=== PATIENT | female | born 1970 | race Caucasian/White ===

== ENCOUNTER 2016-10-20 18:31 | Outpatient (CLI) | payer MEDICARE, MEDICAID | END 2016-10-20 18:32 | disposition critical access hospital (66) | DX: G89.29 Other chronic pain (principal) | CPT/HCPCS: A0425; A0429 ==

== ENCOUNTER 2016-10-20 18:43 | Emergency (ER) | payer MEDICARE, MEDICAID | END 2016-10-20 20:12 | disposition home or self-care (01) | DX: G47.00 Insomnia, unspecified (principal); M54.5 Low back pain; F41.9 Anxiety disorder, unspecified ==

== ENCOUNTER 2016-10-21 23:03 | Outpatient (CLI) | payer MEDICARE, MEDICAID | END 2016-10-21 23:04 | disposition critical access hospital (66) | LOC: EMS 23:03 | PROVIDERS: ATTEND Surgery | DX: R53.83 Other fatigue (principal); R47.81 Slurred speech | CPT/HCPCS: A0425; A0429 ==

== ENCOUNTER 2016-10-21 23:16 | Emergency (ER) | payer MEDICARE, MEDICAID ==
--- NOTE | 2016-10-21 23:52 | ED Physician Documentation ---
History of Present Illness - Stated complaint Stated Complaint: LETHARGY - Chief complaint Chief Complaint: MHE - History obtained from History obtained from: Patient, EMS - History of Present Illness Timing: How many days ago (2) - Additonal information Additional information: 46 y/o female S/P gastric bypass with a history of narcotic addiction has developed lethargy and worsening back pain. She is not able to get out of bed today or walk without assistance as she is weak. She is out of her suboxone prescribed by Dr. White and will not be able to get a refill on this until Friday "secondary to insurance" Review of Systems Constitutional: reports: Fatigue. denies: Fever Eyes: denies: Decreased vision Ears: denies: Ear pain Nose: denies: Congestion Throat: denies: Sore throat Cardiac: denies: Chest pain / pressure, Palpitations Respiratory: denies: Dyspnea, Cough GI: denies: Abdominal Pain, Nausea, Vomiting : denies: Dysuria, Frequency Skin: denies: Rash Musculoskeletal: reports: Back pain Neurologic: reports: Generalized weakness. 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 - Present Medications Home Medications: Ambulatory Orders Medication Instructions Recorded Confirmed Gabapentin 300 mg PO TID 02/02/15 10/21/16 Ferrous Sulfate [Iron] 325 mg PO TID 06/08/16 10/21/16 QUEtiapine [SEROquel] 150 mg PO QPM 06/08/16 10/21/16 Pregabalin [Lyrica] 150 mg PO DAILY 10/20/16 10/21/16 Buprenorphine HCl/Naloxone HCl 1 each SL DAILY 10/21/16 10/21/16 [Buprenorphin-Naloxon 8-2 mg Sl] - Allergies Allergies/Adverse Reactions: Allergies Allergy/AdvReac Type Severity Reaction Status Date / Time acetaminophen [From Vicodin] Allergy Rash Verified 10/21/16 23:24 diflunisal [From Dolobid] Allergy Unknown Verified 10/21/16 23:24 hydrocodone bitartrate * Allergy Rash Verified 10/21/16 23:24 [From Vicodin] naproxen [From Naprosyn] Allergy Unknown Verified 10/21/16 23:24 - Social History Does the pt smoke?: No Smoking Status: Never smoker Does the pt drink ETOH?: Yes Does the pt have substance abuse?: Yes Substance Use and Type: Marijuana - Immunizations Immunizations are current?: Yes - POLST Patient has POLST: No PD ED PE NORMAL - Vitals Vital signs reviewed: Yes (hypertensive ) - General General: Alert and oriented X 3, Well developed/nourished - HEENT HEENT: Atraumatic, PERRL, EOMI, Other (dry mucous membranes ) - Neck Neck: Supple, no meningeal sign, No bony TTP - Cardiac Cardiac: RRR, No murmur - Respiratory Respiratory: No respiratory distress, Clear bilaterally - Abdomen Abdomen: Soft, Non tender, Other (glaborous folds of skin ) - Back Back: No CVA TTP, Other (There is paraspinous muscle tenderness to the lower lumbar spine. ) - Derm Derm: Normal color, Warm and dry, No rash - Extremities Extremities: No deformity, No edema - Neuro Neuro: Alert and oriented X 3, No motor deficit, No sensory deficit, Normal speech - Psych Psych: Normal mood, Normal affect Results - Vitals Vitals: Vital Signs - 24 hr 10/21/16 10/21/16 10/22/16 23:17 23:25 00:43 Temperature 36.6 C Heart Rate 88 61 65 Respiratory 16 15 17 Rate Blood Pressure 145/91 H 122/84 H 134/99 H O2 Saturation 100 100 99 10/22/16 10/22/16 10/22/16 01:56 02:35 02:57 Temperature Heart Rate 58 L 61 67 Respiratory 12 18 16 Rate Blood Pressure 127/80 139/96 H 132/77 H O2 Saturation 100 98 96 Oxygen O2 Source Room air - Labs Labs: Laboratory Tests 10/21/16 10/21/16 10/21/16 23:26 23:26 23:26 WBC 5.2 RBC 4.26 Hgb 11.4 L Hct 34.4 L MCV 80.7 L MCH 26.9 L MCHC 33.3 RDW 20.6 H Plt Count 235 MPV 10.3 Neut # 2.4 Lymph # 2.4 [place] # 0.3 Eos # 0.0 Baso # 0.0 Absolute Nucleated RBC 0.00 Nucleated RBCs 0.1 Manual Slide Review Indicated Platelet Estimate NORMAL (130-450,000) Platelet Morphology NORMAL APPEARANCE RBC Morph Micro Appear 1+ OVALOCYTES Sodium 142 Potassium 3.2 L Chloride 106 Carbon Dioxide 28 Anion Gap 8.0 BUN 5 L Creatinine 0.7 Estimated GFR (MDRD) 90 Glucose 86 Lactic Acid Calcium 8.6 Total Bilirubin 0.3 AST 10 ALT 10 Alkaline Phosphatase 78 Troponin I < 0.04 Total Protein 7.0 Albumin 3.5 Globulin 3.5 Albumin/Globulin Ratio 1.0 Lipase 14 L Urine Opiates Screen Ur Oxycodone Screen Urine Methadone Screen Ur Propoxyphene Screen Ur Barbiturates Screen Ur Tricyclics Screen Ur Phencyclidine Scrn Ur Amphetamine Screen U Methamphetamines Scrn U Benzodiazepines Scrn Urine Cocaine Screen U Cannabinoids Screen 10/21/16 10/22/16 23:56 00:15 WBC RBC Hgb Hct MCV MCH MCHC RDW Plt Count MPV Neut # Lymph # [place] # Eos # Baso # Absolute Nucleated RBC Nucleated RBCs Manual Slide Review Platelet Estimate Platelet Morphology RBC Morph Micro Appear Sodium Potassium Chloride Carbon Dioxide Anion Gap BUN Creatinine Estimated GFR (MDRD) Glucose Lactic Acid 1.3 Calcium Total Bilirubin AST ALT Alkaline Phosphatase Troponin I Total Protein Albumin Globulin Albumin/Globulin Ratio Lipase Urine Opiates Screen NEGATIVE Ur Oxycodone Screen NEGATIVE Urine Methadone Screen NEGATIVE Ur Propoxyphene Screen NEGATIVE Ur Barbiturates Screen NEGATIVE Ur Tricyclics Screen POSITIVE H Ur Phencyclidine Scrn NEGATIVE Ur Amphetamine Screen NEGATIVE U Methamphetamines Scrn NEGATIVE U Benzodiazepines Scrn POSITIVE H Urine Cocaine Screen NEGATIVE U Cannabinoids Screen NEGATIVE Procedures - IVC sono (time) 2345 Bedside IVC sono: IVC measures (cm) (0.84), IVC collapsed c insp (cm) (complete) , Significant dehydration PD MEDICAL DECISION MAKING - ED course Complexity details: reviewed old records, reviewed results, re-evaluated patient , considered differential, d/w patient ED course: 46 y/o female with chronic back pain and narcotic addiction is on suboxone for pain control and has run out. She is significantly dehydrated on interrogation of the IVC. She is administered IV saline and decadron without much improvement in the pain. She is subsequently treated with IV dilaudid with some improvement. I have discussed with the patient that we will not be able to prescribe pain medications as she is on pain management. Departure - Departure Disposition: 01 Home, Self Care Clinical Impression: Dehydration Low back pain Qualifiers: Chronicity: chronic Back pain laterality: bilateral Sciatica presence: without sciatica Qualified Code(s): M54.5 - Low back pain Condition: Stable Instructions: ED Dehydration, ED Low Back Pain Injury Follow-Up: Oliver White MD [Other] Comments: Today it appears your weakness is related to significant dehydration. You are on pain management and we will not be able to give you a prescription for ongoing narcotic pain medications. You will need to talk to Dr. White about pain control in the interval. Today in the Emergency Department your blood pressure was elevated. This can happen from the stress of the visit itself, from a current illness or circumstance or from uncontrolled hypertension. If you take blood pressure medications take your usual mediations, have your blood pressure re-checked in an appropriate setting and follow up any elevation with your primary care doctor. Discharge Date/Time: 10/22/16 02:58
[2016-10-22] MEDS ORDERED: DEXAMETHASONE 10 MG/ML VIAL ONE
[2016-10-22] MEDS: SODIUM CHLORIDE 0.9% 1,000 ML IV ONE ×2 (00:01→01:10)
[2016-10-22 00:02] LABS: BASOPHILS % (AUTO) 0.6 %; EOSINOPHILS % (AUTO) 0.5 %; HCT - HEMATOCRIT 34.4 % (37.0-47.0); HGB - HEMOGLOBIN 11.4 g/dL (12.0-16.0); LYMPHOCYTES # (AUTO) 2.4 10^3/uL (1.5-3.5); LYMPHOCYTES % (AUTO) 45.8 %; MEAN CORPUSCULAR HEMOGLOBIN 26.9 pg (27.0-31.0); MEAN CORPUSCULAR HGB CONC 33.3 g/dL (32.0-36.0); MEAN CORPUSCULAR VOLUME 80.7 fL (81.0-99.0); MEAN PLATELET VOLUME 10.3 fL (7.9-10.8); MONOCYTES # (AUTO) 0.3 10^3/uL (0.0-1.0); MONOCYTES % (AUTO) 5.8 %; NEUTROPHILS # (AUTO) 2.4 10^3/uL (1.5-6.6); NEUTROPHILS % (AUTO) 47.3 %; NUCLEATED RED BLOOD CELLS AUTO 0.1 /100WBC; RED BLOOD COUNT 4.26 10^6/uL (4.20-5.40); RED CELL DISTRIBUTION WIDTH 20.6 % (12.0-15.0); UNCORRECTED WHITE BLOOD COUNT 5.2 x10^3/uL; WHITE BLOOD COUNT 5.2 x10^3/uL (4.8-10.8)
[2016-10-22] MEDS: DEXAMETHASONE 10 MG/ML VIAL IVP STA (00:02)
[2016-10-22 00:15] LABS: BILIRUBIN,TOTAL 0.3 mg/dL (0.2-1.0); CALCIUM 8.6 mg/dL (8.5-10.3); CREATININE 0.7 mg/dL (0.4-1.0); POTASSIUM 3.2 mmol/L (3.5-5.0)
[2016-10-22 00:34] LABS: PLATELET ESTIMATE, MANUAL NORMAL (130-450,000) (NORMAL); PLATELET MORPHOLOGY NORMAL APPEARANCE (NORMAL)
[2016-10-22] MEDS ORDERED: POTASSIUM BICARB 25 MEQ TABLET PO ONE (01:11)
[2016-10-22] MEDS: POTASSIUM BICARB 25 MEQ TABLET PO STA (01:13)
[2016-10-22] MEDS ORDERED: HYDROmorphone 1 MG/ML SYRINGE ONE ×2 (01:25→02:32)
[2016-10-22] MEDS ORDERED: ONDANSETRON 4 MG/2 ML VIAL ONE (01:25)
[2016-10-22] MEDS: HYDROmorphone 1 MG/ML SYRINGE IVP STA ×2 (01:29→02:36)
[2016-10-22] MEDS: ONDANSETRON 4 MG/2 ML VIAL IVP STA (01:29)
[2016-10-22 02:58] VITALS: BP 132/77
== END 2016-10-22 02:58 | disposition home or self-care (01) ==
LOC: EDUNIT# → ED 23:16
DX: E86.0 Dehydration (principal); F11.23 Opioid dependence with withdrawal; T40.2X6A Underdosing of other opioids, initial encounter; Z91.138 Patient's unintentional underdosing of medication regimen for other reason; M54.5 Low back pain; G89.4 Chronic pain syndrome; J45.909 Unspecified asthma, uncomplicated; R03.0 Elevated blood-pressure reading, without diagnosis of hypertension; Z98.84 Bariatric surgery status
CPT/HCPCS: 36415; 51701; 80053; 80306; 83605; 83690; 84484; 85025; 96361; 96372; 96374; 96375; 96376; 99283; 99284; 99285

== ENCOUNTER 2016-10-22 12:13 | Outpatient (CLI) | payer MEDICARE, MEDICAID | END 2016-10-22 12:14 | disposition critical access hospital (66) | LOC: EMS 12:13 | PROVIDERS: ATTEND Surgery | DX: M79.604 Pain in right leg (principal) | CPT/HCPCS: A0425; A0429 ==

== ENCOUNTER 2016-10-22 12:28 | Emergency (ER) | payer MEDICARE ==
[2016-10-22 12:34] VITALS: BP 121/85
[2016-10-22] MEDS ORDERED: KETOROLAC 60 MG/2 ML VIAL IM STA (12:36)
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
[2016-10-22] MEDS ORDERED: KETOROLAC 60 MG/2 ML VIAL ONE (12:47)
== END 2016-10-22 12:53 | disposition home or self-care (01) ==
LOC: EDUNIT# → ED 12:28
DX: F11.23 Opioid dependence with withdrawal (principal); T40.2X6A Underdosing of other opioids, initial encounter; Z91.138 Patient's unintentional underdosing of medication regimen for other reason; M54.5 Low back pain; G89.4 Chronic pain syndrome; J45.909 Unspecified asthma, uncomplicated; R03.0 Elevated blood-pressure reading, without diagnosis of hypertension

== ENCOUNTER 2016-10-30 17:37 | Outpatient (CLI) | payer MEDICARE, MEDICAID | END 2016-10-30 17:38 | disposition critical access hospital (66) | LOC: EMS 17:37 | PROVIDERS: ATTEND Surgery | DX: R11.2 Nausea with vomiting, unspecified (principal) | CPT/HCPCS: A0425; A0427 ==

== ENCOUNTER 2016-10-30 17:53 | Emergency (ER) | payer MEDICARE, MEDICAID ==
[2016-10-30] MEDS ORDERED: SODIUM CHLORIDE 0.9% 1,000 ML IV ONE (18:18)
--- NOTE | 2016-10-30 18:21 | ED Physician Documentation ---
History of Present Illness - Stated complaint Stated Complaint: N/V - Chief complaint Chief Complaint: General - History obtained from History obtained from: Patient - History of Present Illness Timing: Other (This is a 46-year-old woman who is 5 years out from a gastric bypass, without complication. Also has chronic pain. Was seen here a few times recently for Suboxone withdrawal, now is back on her Suboxone seems stable from a pain perspective but has had persistent vomiting without significant abdominal pain for the last 6 days. She's had no diarrhea in fact doesn't seem to be having any bowel output. There is no associated fever. 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 - Present Medications Home Medications: Ambulatory Orders Medication Instructions Recorded Confirmed Gabapentin 300 mg PO TID 02/02/15 10/30/16 Ferrous Sulfate [Iron] 325 mg PO TID 06/08/16 10/30/16 QUEtiapine [SEROquel] 150 mg PO QPM 06/08/16 10/30/16 Pregabalin [Lyrica] 150 mg PO DAILY 10/20/16 10/30/16 Buprenorphine HCl/Naloxone HCl 1 each SL DAILY 10/21/16 10/21/16 [Buprenorphin-Naloxon 8-2 mg Sl] Ondansetron HCl [Zofran] 4 mg PO Q6H PRN #10 tablet 10/30/16 - Allergies Allergies/Adverse Reactions: Allergies Allergy/AdvReac Type Severity Reaction Status Date / Time acetaminophen [From Vicodin] Allergy Rash Verified 10/30/16 18:24 diflunisal [From Dolobid] Allergy Unknown Verified 10/30/16 18:24 hydrocodone bitartrate * Allergy Rash Verified 10/30/16 18:24 [From Vicodin] naproxen [From Naprosyn] Allergy Unknown Verified 10/30/16 18:24 - Social History Does the pt smoke?: No Smoking Status: Never smoker Does the pt drink ETOH?: Yes Does the pt have substance abuse?: Yes - Family History Family history: reports: Non contributory - Immunizations Immunizations are current?: Yes - POLST Patient has POLST: No PD ED PE NORMAL - Vitals Vital signs reviewed: Yes - General General: Alert and oriented X 3, No acute distress - HEENT HEENT: PERRL, EOMI, Pharynx benign - Neck Neck: Supple, no meningeal sign, No bony TTP - Cardiac Cardiac: RRR, No murmur - Respiratory Respiratory: No respiratory distress, Clear bilaterally - Abdomen Abdomen: Other (I do not appreciate bowel tones, there is no tenderness) - Derm Derm: Normal color, Warm and dry - Extremities Extremities: No deformity, No tenderness to palpate, No edema, No calf tenderness / cord - Neuro Neuro: Alert and oriented X 3, Normal speech - Psych Psych: Normal mood, Normal affect Results - Vitals Vitals: Vital Signs - 24 hr 10/30/16 10/30/16 10/30/16 17:58 19:10 20:26 Temperature 36.7 C 36.7 C 36.1 C L Heart Rate 69 65 65 Respiratory 16 15 15 Rate Blood Pressure 162/103 H 138/96 H 146/94 H O2 Saturation 100 100 100 10/30/16 10/30/16 21:15 22:06 Temperature Heart Rate 79 65 Respiratory 16 15 Rate Blood Pressure 146/95 H 144/98 H O2 Saturation 98 98 Oxygen O2 Source Room air - Labs Labs: Laboratory Tests 10/30/16 10/30/16 10/30/16 18:10 18:10 19:00 WBC 5.8 RBC 4.49 Hgb 11.9 L Hct 36.4 L MCV 81.2 MCH 26.6 L MCHC 32.8 RDW 19.6 H Plt Count 257 MPV 9.9 Neut # 3.6 Lymph # 1.7 [place] # 0.4 Eos # 0.0 Baso # 0.0 Absolute Nucleated RBC 0.00 Nucleated RBCs 0.0 Sodium 133 L Potassium 3.7 Chloride 100 L Carbon Dioxide 24 Anion Gap 9.0 BUN 11 Creatinine 0.5 Estimated GFR (MDRD) 133 Glucose 96 Calcium 8.9 Magnesium 1.8 Total Bilirubin 0.8 AST 21 ALT 14 Alkaline Phosphatase 80 Total Protein 7.3 Albumin 3.6 Globulin 3.7 Albumin/Globulin Ratio 1.0 Lipase 14 L Urine Color YELLOW Urine Clarity CLEAR Urine pH 6.0 Ur Specific [place] <=1.005 Urine Protein NEGATIVE Urine Glucose (UA) NEGATIVE Urine Ketones 15 H Urine Occult Blood TRACE-LYSE Urine Nitrite NEGATIVE Urine Bilirubin NEGATIVE Urine Urobilinogen 0.2 (NORMAL) Ur Leukocyte Esterase NEGATIVE Ur Microscopic Review NOT INDICATED Urine Culture Comments NOT INDICATED - Rads (name of study) CT A/P Radiology: EMP read contemporaneously (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 Case discussed with Dr. Huerta, on-call surgeon at [facility] where she had her gastric bypass who felt this could be easily and safely worked up as an outpatient and there is no need for emergent transfer or admission. Departure - Departure Disposition: 01 Home, Self Care Clinical Impression: Vomiting (bilious) following gastrointestinal surgery Condition: Good Record reviewed to determine appropriate education?: Yes Instructions: ED Nausea Vomiting Prescriptions: Ondansetron HCl [Zofran] 4 mg PO Q6H PRN #10 tablet PRN Reason: Nausea / Vomiting Comments: Your case was discussed tonight with Dr. Huerta at [facility]. You need to followup with the bariatric clinic down there, the number is [phone]. Take the copy of the CAT scan on the CD with you. Your blood pressure was elevated today on check in to the emergency department. This does not mean that you have hypertension, it is a common phenomenon to check into the emergency department and have elevated blood pressure. I recommend that you see your primary care physician within the week to have it rechecked when you're feeling better.
[2016-10-30 18:38] LABS: BASOPHILS % (AUTO) 0.5 %; EOSINOPHILS % (AUTO) 0.1 %; HCT - HEMATOCRIT 36.4 % (37.0-47.0); HGB - HEMOGLOBIN 11.9 g/dL (12.0-16.0); LYMPHOCYTES # (AUTO) 1.7 10^3/uL (1.5-3.5); LYMPHOCYTES % (AUTO) 28.9 %; MEAN CORPUSCULAR HEMOGLOBIN 26.6 pg (27.0-31.0); MEAN CORPUSCULAR HGB CONC 32.8 g/dL (32.0-36.0); MEAN CORPUSCULAR VOLUME 81.2 fL (81.0-99.0); MEAN PLATELET VOLUME 9.9 fL (7.9-10.8); MONOCYTES # (AUTO) 0.4 10^3/uL (0.0-1.0); MONOCYTES % (AUTO) 7.3 %; NEUTROPHILS # (AUTO) 3.6 10^3/uL (1.5-6.6); NEUTROPHILS % (AUTO) 63.2 %; RED BLOOD COUNT 4.49 10^6/uL (4.20-5.40); RED CELL DISTRIBUTION WIDTH 19.6 % (12.0-15.0); UNCORRECTED WHITE BLOOD COUNT 5.8 x10^3/uL; WHITE BLOOD COUNT 5.8 x10^3/uL (4.8-10.8)
[2016-10-30 18:49] LABS: BILIRUBIN,TOTAL 0.8 mg/dL (0.2-1.0); CALCIUM 8.9 mg/dL (8.5-10.3); CREATININE 0.5 mg/dL (0.4-1.0); MAGNESIUM 1.8 mg/dL (1.7-2.8); POTASSIUM 3.7 mmol/L (3.5-5.0); TOTAL PROTEIN 7.3 g/dL (6.7-8.2)
[2016-10-30 19:14] LABS: BILIRUBIN,URINE NEGATIVE (NEGATIVE)
[2016-10-30 19:15] LABS: UA CHARGE (STRIP ONLY) YES; UR CULTURE IF IND NOT INDICATED
[2016-10-30] MEDS ORDERED: IOPAMIDOL-300 50 ML VIAL PO ONE (19:58)
[2016-10-30] MEDS ORDERED: IOPAMIDOL-300 100 ML VIAL IVP ONE (19:58)
--- NOTE | 2016-10-30 20:34 | CT Report ---
EXAM: CT ABDOMEN AND PELVIS EXAM DATE: 10/30/2016 07:58 PM. CLINICAL HISTORY: Vomiting. Remote gastric bypass. COMPARISONS: 05/19/2016. TECHNIQUE: Routine helical CT imaging was performed through the abdomen and pelvis. IV contrast: 100 mL Isovue 300. Enteric contrast: Yes. Reconstructions: Coronal and sagittal. In accordance with CT protocol optimization, one or more of the following dose reduction techniques w ere utilized for this exam: automated exposure control, adjustment of mA and/or KV based on patient s ize, or use of iterative reconstructive technique. FINDINGS: Lung Bases: Unremarkable. Liver: Normal. No focal hepatic lesion. Gallbladder/Bile Ducts: The common bile duct is mildly dilated, measuring 11 mm in diameter (upper mi d limits of normal 6 mm. No visualized stones. Spleen: Normal. Pancreas: Normal. Adrenal Glands: Normal. Kidneys and Ureters: Normal. No stones, hydronephrosis, or hydroureter. Peritoneal Cavity/Bowel: Postoperative changes of remote Jennifer-en-Y gastric bypass surgery. 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 No evidence for bowel obstruction or acut e inflammatory process. The appendix is normal. Trace intrapelvic free fluid, within physiologic limi ts. No pneumoperitoneum or adenopathy. Pelvic Organs: Small benign-appearing bilateral ovarian cysts measuring 2.7 cm on the right (image 72 ) and 2.2 cm on the left (image 73). The bladder, uterus, and ovaries are otherwise unremarkable. Vasculature: Unremarkable. Bones: Transitional partially lumbar S1 vertebral body, a normal variant. Mild right convex curvature centered at L3-L4 and left convex curvature centered at L5-S1. Moderate to severe multilevel degener ative disk disease within the lumbar spine. No acute bony abnormality. Other: Unchanged small fat-containing umbilical and supraumbilical hernias. IMPRESSION: 1. 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 2. New mild dilation of the common bile duct. Consider correlation with laboratory values to assess f or evidence of obstruction. 3. Small benign-appearing bilateral ovarian cysts. No follow-up imaging is needed per ACR white paper . [facility] Referring Provider Line: [phone] SITE ID: [id number]
[2016-10-30 22:07] VITALS: BP 144/98
== END 2016-10-30 22:36 | disposition home or self-care (01) ==
LOC: EDUNIT# → ED 17:53
DX: K91.0 Vomiting following gastrointestinal surgery (principal); K95.89 Other complications of other bariatric procedure; G89.29 Other chronic pain; J45.909 Unspecified asthma, uncomplicated; R03.0 Elevated blood-pressure reading, without diagnosis of hypertension
CPT/HCPCS: 36415; 74177; 80053; 81003; 83690; 83735; 85025; 99284; Q9967; 81001; 87086

== ENCOUNTER 2017-03-04 15:03 | Outpatient (CLI) | payer MEDICARE, MEDICAID | END 2017-03-04 15:04 | disposition critical access hospital (66) | LOC: EMS 15:03 | PROVIDERS: ATTEND Surgery | DX: R51 Headache (principal) | CPT/HCPCS: A0425; A0429 ==

== ENCOUNTER 2017-03-04 15:17 | Emergency (ER) | payer MEDICARE, MEDICAID | END 2017-03-04 16:30 | disposition left against medical advice (07) | LOC: EDUNIT# → ED 15:17 | DX: Z53.21 Procedure and treatment not carried out due to patient leaving prior to being seen by health care provider (principal) ==

== ENCOUNTER 2017-03-29 20:34 | Emergency (ER) | payer MEDICARE, MEDICAID ==
[2017-03-29] MEDS ORDERED: LORazepam 2 MG/ML SYRINGE IVP STA (21:26)
[2017-03-29] MEDS ORDERED: SODIUM CHLORIDE 0.9% 1,000 ML IV ONE (21:27)
[2017-03-29 21:29] LABS: BASOPHILS % (AUTO) 0.3 %; EOSINOPHILS % (AUTO) 0.2 %; HCT - HEMATOCRIT 42.1 % (37.0-47.0); HGB - HEMOGLOBIN 14.1 g/dL (12.0-16.0); LYMPHOCYTES # (AUTO) 3.4 10^3/uL (1.5-3.5); LYMPHOCYTES % (AUTO) 48.9 %; MEAN CORPUSCULAR HEMOGLOBIN 31.5 pg (27.0-31.0); MEAN CORPUSCULAR HGB CONC 33.4 g/dL (32.0-36.0); MEAN CORPUSCULAR VOLUME 94.2 fL (81.0-99.0); MEAN PLATELET VOLUME 10.3 fL (7.9-10.8); MONOCYTES # (AUTO) 0.5 10^3/uL (0.0-1.0); MONOCYTES % (AUTO) 6.8 %; NEUTROPHILS # (AUTO) 3.1 10^3/uL (1.5-6.6); NEUTROPHILS % (AUTO) 43.8 %; RED BLOOD COUNT 4.47 10^6/uL (4.20-5.40); RED CELL DISTRIBUTION WIDTH 15.7 % (12.0-15.0)
[2017-03-29] MEDS ORDERED: LORazepam 2 MG/ML SYRINGE ONE (21:37)
[2017-03-29 21:42] LABS: BILIRUBIN,TOTAL 0.4 mg/dL (0.2-1.0); BUN - BLOOD UREA NITROGEN 15 mg/dL (6-20); CALCIUM 8.7 mg/dL (8.5-10.3); CARBON DIOXIDE - CO2 19 mmol/L (21-32); CHLORIDE 106 mmol/L (101-111); CREATININE 0.8 mg/dL (0.4-1.0); GFR - MDRD 78 (>89); GLUCOSE 83 mg/dL (70-100); LIPASE 14 U/L (22-51); MAGNESIUM 2.2 mg/dL (1.7-2.8); PHOSPHORUS 3.8 mg/dL (2.5-4.6); SODIUM 140 mmol/L (135-145); TOTAL PROTEIN 7.8 g/dL (6.7-8.2)
--- NOTE | 2017-03-29 22:01 | CT Preliminary Report ---
Exam: CT HEAD W/O IMPRESSION: No acute findings. [facility] SITE ID: [id number]
--- NOTE | 2017-03-29 22:04 | CT Report ---
EXAM: CT HEAD EXAM DATE: 03/29/2017 09:53 PM. CLINICAL HISTORY: New onset seizures. COMPARISON: 11/04/2014. TECHNIQUE: Multiaxial CT images were obtained from the foramen magnum to the vertex. IV contrast: Non e. Reformats: Coronal. In accordance with CT protocol optimization, one or more of the following dose reduction techniques w ere utilized for this exam: automated exposure control, adjustment of mA and/or KV based on patient s ize, or use of iterative reconstructive technique. FINDINGS: Parenchyma: No intraparenchymal hemorrhage. No evidence of mass, midline shift, or CT findings of inf arction. Chou-white differentiation is distinct. Extraaxial Spaces: Normal for age. No subdural or epidural collections identified. Ventricles: Normal in size and position. Sinuses and orbits: Imaged paranasal sinuses, orbits, and mastoids show no significant abnormality. Bones: No fractures. Hyperostosis frontalis interna is seen. Other: None. IMPRESSION: No acute findings. [facility] Referring Provider Line: [phone] SITE ID: [id number]
[2017-03-29 23:01] LABS: BILIRUBIN,URINE NEGATIVE (NEGATIVE)
[2017-03-29] MEDS ORDERED: ACETAMINOPHEN 325 MG TABLET PO STA (23:12)
[2017-03-29 23:13] LABS: HCG UR QUAL NEGATIVE; UA CHARGE (STRIP ONLY) YES; UR CULTURE IF IND NOT INDICATED
[2017-03-29] MEDS ORDERED: ACETAMINOPHEN 325 MG TABLET PO ONE (23:20)
[2017-03-30] MEDS ORDERED: levETIRAcetam INJ 1,000 MG in SODIUM CHLORIDE 0.9% 100ML 100 ML IV STA (00:13)
[2017-03-30 00:55] VITALS: BP 128/86
--- NOTE | 2017-03-30 00:59 | ED Physician Documentation ---
PD HPI SEIZURE - Stated complaint Stated Complaint: DIZZY - Chief complaint Chief Complaint: Neuro - History obtained from History obtained from: Patient, Friend - History of Present Illness Timing - onset: How many weeks ago (4) Witnessed: Witnessed Number of seizures: Multiple, Lasted - seconds, Lasted minutes (1) Description of seizure activity: Generalized, Tonic clonic History of seizures: First seizure Similar symptoms before: Has not had sx before Recently seen: Not recently seen - Additional information Additional information: Patient is a 46 year old female with a history of chronic pain, anxiety, depression and status post gastric bypass who is presenting to the emergency department for recurrent falls, stutter and possible seizures. patient states that she falls almost every day because her legs give out on her. He friend also states that when she has been staying with Review of Systems Constitutional: denies: Fever, Chills Eyes: denies: Decreased vision, Photophobia Ears: reports: Reviewed and negative Nose: denies: Congestion, Epistaxis Throat: denies: Sore throat Cardiac: denies: Chest pain / pressure, Palpitations, Calf pain Respiratory: denies: Cough, Wheezing GI: denies: Nausea, Vomiting : denies: Dysuria, Frequency, Hesitancy, Incontinent Skin: denies: Rash, Lesions Musculoskeletal: denies: Neck pain, Back pain Neurologic: reports: Generalized weakness, Seizure, Other (twitching) Psychiatric: reports: Other (new stuttering) PD PAST MEDICAL HISTORY - Past Medical History Respiratory: Asthma Neuro: Headache/migraine GI: Other Psych: Depression, Anxiety Musculoskeletal: Chronic back pain Derm: Herpes zoster - Past Surgical History Past Surgical History: Yes General: Gastric surgery Ortho: Shoulder arthroplasty, 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 - Present Medications Home Medications: Ambulatory Orders Medication Instructions Recorded Confirmed QUEtiapine [SEROquel] 150 mg PO QPM 06/08/16 03/29/17 Pregabalin [Lyrica] 150 mg PO DAILY 10/20/16 03/29/17 Buprenorphine HCl/Naloxone HCl 1 each SL DAILY 10/21/16 03/29/17 [Buprenorphin-Naloxon 8-2 mg Sl] DULoxetine [Cymbalta] 60 mg PO BID 03/29/17 03/29/17 Clonazepam 2 mg PO BID #5 tablet 03/30/17 Levetiracetam [Keppra] 750 mg PO BID #60 tablet 03/30/17 - Allergies Allergies/Adverse Reactions: Allergies Allergy/AdvReac Type Severity Reaction Status Date / Time hydrocodone bitartrate * Allergy Mild Rash Verified 03/29/17 23:42 [From Vicodin] diflunisal [From Dolobid] Allergy Unknown Verified 10/30/16 18:24 naproxen [From Naprosyn] Allergy Unknown Verified 10/30/16 18:24 - Social History Does the pt smoke?: No Smoking Status: Never smoker Does the pt drink ETOH?: No Does the pt have substance abuse?: No - Immunizations Immunizations are current?: Yes - POLST Patient has POLST: No PD ED PE NORMAL - Vitals Vital signs reviewed: Yes - General General: Alert and oriented X 3, No acute distress - HEENT HEENT: Atraumatic - Neck Neck: Supple, no meningeal sign, No JVD - Cardiac Cardiac: RRR, No murmur - Respiratory Respiratory: No respiratory distress - Abdomen Abdomen: Soft, Non tender, Non distended - Derm Derm: Normal color, Warm and dry, No rash - Extremities Extremities: No deformity - Neuro Neuro: Alert and oriented X 3, No sensory deficit, Normal speech - Psych Psych: Normal mood PD ED PE EXPANDED - HEENT HEENT: Head injury (small abrasion to right posterior scalp), Dry mucous membranes - Neuro Neuro: Alert and Oriented X 3, Other (30 sec generalized tonic clonic seizure). No: Confused, Disoriented - Psych Psych: Other (intermittent stuttering or twitches) Results - Vitals Vitals: Vital Signs - 24 hr 03/29/17 03/29/17 03/30/17 20:42 21:28 00:54 Temperature 98.5 C H Heart Rate 85 102 H 79 Respiratory 18 20 18 Rate Blood Pressure 136/90 H 121/88 H 128/86 H O2 Saturation 99 95 96 Oxygen O2 Source Room air - EKG (time done) 2102 Rate: Rate (enter#) (82) Rhythm: NSR Holmes: Normal QRS: Normal Ischemia: Non specific changes Compare to prior EKG: Unchanged from prior EKG - Labs Labs: Laboratory Tests 03/29/17 03/29/17 03/29/17 21:19 21:19 22:40 WBC 7.0 RBC 4.47 Hgb 14.1 Hct 42.1 MCV 94.2 MCH 31.5 H MCHC 33.4 RDW 15.7 H Plt Count 240 MPV 10.3 Neut # 3.1 Lymph # 3.4 [place] # 0.5 Eos # 0.0 Baso # 0.0 Absolute Nucleated RBC 0.00 Nucleated RBC % 0.0 Sodium 140 Potassium 3.0 L Chloride 106 Carbon Dioxide 19 L Anion Gap 15.0 H BUN 15 Creatinine 0.8 Estimated GFR (MDRD) 78 L Glucose 83 Calcium 8.7 Phosphorus 3.8 Magnesium 2.2 Total Bilirubin 0.4 AST 21 ALT < 10 L Alkaline Phosphatase 71 Total Protein 7.8 Albumin 3.9 Globulin 3.9 Albumin/Globulin Ratio 1.0 Lipase 14 L Urine Color Urine Clarity Urine pH Ur Specific [place] Urine Protein Urine Glucose (UA) Urine Ketones Urine Occult Blood Urine Nitrite Urine Bilirubin Urine Urobilinogen Ur Leukocyte Esterase Ur Microscopic Review Urine Culture Comments Urine HCG, Qual Urine Opiates Screen NEGATIVE Ur Oxycodone Screen NEGATIVE Urine Methadone Screen NEGATIVE Ur Propoxyphene Screen NEGATIVE Ur Barbiturates Screen NEGATIVE Ur Tricyclics Screen POSITIVE H Ur Phencyclidine Scrn NEGATIVE Ur Amphetamine Screen NEGATIVE U Methamphetamines Scrn NEGATIVE U Benzodiazepines Scrn NEGATIVE Urine Cocaine Screen NEGATIVE U Cannabinoids Screen NEGATIVE 03/29/17 22:40 WBC RBC Hgb Hct MCV MCH MCHC RDW Plt Count MPV Neut # Lymph # [place] # Eos # Baso # Absolute Nucleated RBC Nucleated RBC % Sodium Potassium Chloride Carbon Dioxide Anion Gap BUN Creatinine Estimated GFR (MDRD) Glucose Calcium Phosphorus Magnesium Total Bilirubin AST ALT Alkaline Phosphatase Total Protein Albumin Globulin Albumin/Globulin Ratio Lipase Urine Color YELLOW Urine Clarity CLEAR Urine pH 6.0 Ur Specific [place] >=1.030 H Urine Protein NEGATIVE Urine Glucose (UA) NEGATIVE Urine Ketones NEGATIVE Urine Occult Blood NEGATIVE Urine Nitrite NEGATIVE Urine Bilirubin NEGATIVE Urine Urobilinogen 0.2 (NORMAL) Ur Leukocyte Esterase NEGATIVE Ur Microscopic Review NOT INDICATED Urine Culture Comments NOT INDICATED Urine HCG, Qual NEGATIVE Urine Opiates Screen Ur Oxycodone Screen Urine Methadone Screen Ur Propoxyphene Screen Ur Barbiturates Screen Ur Tricyclics Screen Ur Phencyclidine Scrn Ur Amphetamine Screen U Methamphetamines Scrn U Benzodiazepines Scrn Urine Cocaine Screen U Cannabinoids Screen - Rads (name of study) ct head Radiology: Final report received (no acute findings) PD MEDICAL DECISION MAKING - ED course Complexity details: reviewed old records, reviewed results, re-evaluated patient , considered differential, d/w patient, d/w benefits sales consultant ED course: Patient was seen and examined at bedside. While evaluating the patient she had a witnessed 30 second seizure with minimal post ictal period. IV access was gained and labs were drawn. Patient was treated with ativan 1mg. seizure precautions were put into place. CT head was within normal limits, as was the blood work. Case was discussed with [facility] neurology who recommended keppra load and keppra 750mg bid and further outpatient work up. Patient was treated and was discharged home with a friend who would stay with her. Patient was stable for discharge with outpatient follow up. Departure - Departure Disposition: Home, Self Care Clinical Impression: New onset seizure Condition: Good Instructions: Epilepsy Dx Follow-Up: [facility], neurology clinic [Other] Prescriptions: Clonazepam 2 mg PO BID #5 tablet Levetiracetam [Keppra] 750 mg PO BID #60 tablet Comments: Your symptoms are in a least part due to a new seizure disorder. It is important that you start your medications (keppra) tomorrow. you will take it every day twice a day. More testing is still necessary. [facility] neurological clinic is expecting your call. You should call them at [phone] to schedule a follow up appointment. If you don't want to go to [place] you can work with your doctor at the appointment on friday to find another neurologist. You cannot drive a car, operate heavy machinery, go swim alone or other behaviors that could be risky if you had a seizure. You may return to the emergency department at any time for new, worsening or uncontrollable symptoms. Discharge Date/Time: 03/30/17 01:44
== END 2017-03-30 01:44 | disposition home or self-care (01) ==
LOC: ED 20:34
DX: R56.9 Unspecified convulsions (principal); J45.909 Unspecified asthma, uncomplicated; Z98.84 Bariatric surgery status
CPT/HCPCS: 36415; 70450; 80053; 80306; 81003; 81025; 83690; 83735; 84100; 85025; 93005; 96361; 96365; 96375; 99284; 99285; A9270; J2060; 81001; 87086

== ENCOUNTER 2017-04-01 16:29 | Emergency (ER) | payer MEDICARE, MEDICAID ==
[2017-04-01] MEDS ORDERED: MULTIVITAMIN 10 ML in SODIUM CHLORIDE 0.9% 1,000 ML IV STA (17:01)
[2017-04-01] MEDS ORDERED: THIAMINE INJ 100 MG, FOLIC ACID INJ 1 MG in SODIUM CHLORIDE 0.9% 100ML 100 ML IV STA (17:01)
[2017-04-01] MEDS ORDERED: MAGNESIUM SULFATE 2 GRAM 2 GM/50 ML BAG IV STA (17:01)
[2017-04-01] MEDS ORDERED: MAGNESIUM SULFATE 2 GRAM 2 GM/50 ML BAG IV ONE (17:51)
--- NOTE | 2017-04-01 18:03 | ED Physician Documentation ---
History of Present Illness - Stated complaint Stated Complaint: DIZZY - Chief complaint Chief Complaint: General - History obtained from History obtained from: Patient - History of Present Illness Timing: How many days ago (3) - Additonal information Additional information: 46-year-old female has had dizziness on standing for the past 3 days. She states that every time she goes to stand up she feels dizzy and feels off balance. She feels that she has been drinking adequate fluid she has not been eating much. She indicates that she is taking all of her medications as prescribed and has been out of her Klonopin for 3 days. Review of Systems Constitutional: reports: Myalgias, Fatigue. denies: Fever, Chills Eyes: denies: Decreased vision Ears: denies: Ear pain Nose: denies: Congestion Throat: denies: Sore throat Cardiac: denies: Chest pain / pressure, Palpitations Respiratory: denies: Dyspnea, Cough GI: denies: Abdominal Pain, Nausea, Diarrhea : denies: Dysuria, Frequency Skin: denies: Rash Musculoskeletal: reports: Neck pain, Back pain, Extremity pain Neurologic: reports: Generalized weakness. 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 - Present Medications Home Medications: Ambulatory Orders Medication Instructions Recorded Confirmed QUEtiapine [SEROquel] 150 mg PO QPM 06/08/16 04/01/17 Pregabalin [Lyrica] 150 mg PO DAILY 10/20/16 03/29/17 Buprenorphine HCl/Naloxone HCl 1 each SL DAILY 10/21/16 04/01/17 [Buprenorphin-Naloxon 8-2 mg Sl] DULoxetine [Cymbalta] 60 mg PO BID 03/29/17 04/01/17 Clonazepam 2 mg PO BID #5 tablet 03/30/17 04/01/17 Levetiracetam [Keppra] 750 mg PO BID #60 tablet 03/30/17 04/01/17 - Allergies Allergies/Adverse Reactions: Allergies Allergy/AdvReac Type Severity Reaction Status Date / Time hydrocodone bitartrate * Allergy Mild Rash Verified 03/29/17 23:42 [From Vicodin] diflunisal [From Dolobid] Allergy Unknown Verified 10/30/16 18:24 naproxen [From Naprosyn] Allergy Unknown Verified 10/30/16 18:24 - Social History Does the pt smoke?: No Smoking Status: Never smoker Does the pt drink ETOH?: No Does the pt have substance abuse?: No - Immunizations Immunizations are current?: Yes - POLST Patient has POLST: No PD ED PE NORMAL - Vitals Vital signs reviewed: Yes (hypertensive) - General General: No acute distress, Well developed/nourished - HEENT HEENT: Atraumatic, PERRL - Neck Neck: Supple, no meningeal sign, No bony TTP - Cardiac Cardiac: RRR, No murmur - Respiratory Respiratory: No respiratory distress, Clear bilaterally - Abdomen Abdomen: Soft, Non tender - Back Back: No CVA TTP, No spinal TTP - Derm Derm: Normal color, Warm and dry, No rash - Extremities Extremities: No deformity, No edema - Neuro Neuro: No motor deficit, No sensory deficit - Psych Psych: Normal mood, Normal affect Results - Vitals Vitals: Vital Signs - 24 hr 04/01/17 04/01/17 16:51 18:13 Temperature 36.6 C Heart Rate 93 85 Respiratory 20 16 Rate Blood Pressure 141/85 H 145/97 H O2 Saturation 97 99 Oxygen O2 Source Room air - EKG (time done) 1640 Rate: Rate (enter#) (80) Rhythm: NSR Ischemia: Q waves Compare to prior EKG: Unchanged from prior EKG (03-29-17) Computer interpretation: Agree with computer - Labs Labs: Laboratory Tests 04/01/17 04/01/17 04/01/17 18:00 18:00 18:00 WBC 3.3 L RBC 4.62 Hgb 14.2 Hct 42.2 MCV 91.5 MCH 30.8 MCHC 33.7 RDW 15.9 H Plt Count 205 MPV 10.3 Neut # 1.8 Lymph # 1.3 L [place] # 0.2 Eos # 0.0 Baso # 0.0 Absolute Nucleated RBC 0.00 Nucleated RBC % 0.0 Sodium 139 Potassium 3.1 L Chloride 104 Carbon Dioxide 25 Anion Gap 10.0 BUN 8 Creatinine 0.9 Estimated GFR (MDRD) 68 L Glucose 98 Calcium 8.8 Total Bilirubin 0.7 AST 16 ALT < 10 L Alkaline Phosphatase 73 Troponin I < 0.04 Total Protein 7.7 Albumin 3.9 Globulin 3.8 Albumin/Globulin Ratio 1.0 Lipase 14 L Procedures - IVC sono (time) 1700 Bedside IVC sono: IVC measures (cm) (1.02), IVC collapsed c insp (cm) (complete) , Dehydration PD MEDICAL DECISION MAKING - ED course Complexity details: reviewed old records, reviewed results, re-evaluated patient , considered differential, d/w patient ED course: 46-year-old female with a history of substance abuse and recovering addiction has become dehydrated. She is administered a banana bag intravenously as well as 25 mEq of potassium bicarbonate and 1 mg of Klonopin. She has a headache and is treated with Toradol 30 mg intravenously. She feels improved with intravenous fluids. She has been out of her klonipin for 3 days. She has an appointment to see her primary tomorrow. Departure - Departure Disposition: 01 Home, Self Care Clinical Impression: Dehydration Condition: Stable Instructions: ED Dehydration Follow-Up: Your, doctor [Other]
[2017-04-01 18:12] LABS: BASOPHILS % (AUTO) 0.6 %; EOSINOPHILS % (AUTO) 0.3 %; HCT - HEMATOCRIT 42.2 % (37.0-47.0); HGB - HEMOGLOBIN 14.2 g/dL (12.0-16.0); LYMPHOCYTES # (AUTO) 1.3 10^3/uL (1.5-3.5); LYMPHOCYTES % (AUTO) 38.5 %; MEAN CORPUSCULAR HEMOGLOBIN 30.8 pg (27.0-31.0); MEAN CORPUSCULAR HGB CONC 33.7 g/dL (32.0-36.0); MEAN CORPUSCULAR VOLUME 91.5 fL (81.0-99.0); MEAN PLATELET VOLUME 10.3 fL (7.9-10.8); MONOCYTES # (AUTO) 0.2 10^3/uL (0.0-1.0); MONOCYTES % (AUTO) 5.5 %; NEUTROPHILS # (AUTO) 1.8 10^3/uL (1.5-6.6); NEUTROPHILS % (AUTO) 55.1 %; RED BLOOD COUNT 4.62 10^6/uL (4.20-5.40); RED CELL DISTRIBUTION WIDTH 15.9 % (12.0-15.0); UNCORRECTED WHITE BLOOD COUNT 3.3 x10^3/uL; WHITE BLOOD COUNT 3.3 x10^3/uL (4.8-10.8)
[2017-04-01 18:25] LABS: BILIRUBIN,TOTAL 0.7 mg/dL (0.2-1.0); BUN - BLOOD UREA NITROGEN 8 mg/dL (6-20); CALCIUM 8.8 mg/dL (8.5-10.3); CARBON DIOXIDE - CO2 25 mmol/L (21-32); CHLORIDE 104 mmol/L (101-111); CREATININE 0.9 mg/dL (0.4-1.0); GFR - MDRD 68 (>89); GLUCOSE 98 mg/dL (70-100); LIPASE 14 U/L (22-51); POTASSIUM 3.1 mmol/L (3.5-5.0); SODIUM 139 mmol/L (135-145); TOTAL PROTEIN 7.7 g/dL (6.7-8.2)
[2017-04-01] MEDS ORDERED: POTASSIUM BICARB 25 MEQ TABLET PO STA (18:41)
[2017-04-01] MEDS ORDERED: KETOROLAC 60 MG/2 ML VIAL IVP STA (18:43)
[2017-04-01] MEDS ORDERED: clonazePAM 0.5 MG TABLET PO STA (18:44)
[2017-04-01] MEDS ORDERED: POTASSIUM BICARB 25 MEQ TABLET PO ONE (18:49)
[2017-04-01] MEDS ORDERED: clonazePAM 0.5 MG TABLET PO ONE (19:18)
[2017-04-01] MEDS ORDERED: KETOROLAC 30 MG/ML VIAL ONE (19:19)
[2017-04-01 20:14] LABS: BILIRUBIN,URINE NEGATIVE (NEGATIVE); PH,URINE 6.5 PH (5.0-7.5)
[2017-04-01 20:16] LABS: UA CHARGE (STRIP ONLY) YES; UR CULTURE IF IND NOT INDICATED
[2017-04-01 20:17] VITALS: BP 147/105
== END 2017-04-01 20:17 | disposition home or self-care (01) ==
LOC: EDUNIT# → ED 16:29
DX: E86.0 Dehydration (principal); R94.31 Abnormal electrocardiogram [ECG] [EKG]; R51 Headache; R42 Dizziness and giddiness
CPT/HCPCS: 36415; 80053; 81003; 83690; 84484; 85025; 93005; 96365; 96368; 96375; 99284; A9270; J3411; 81001; 87086

== ENCOUNTER 2017-04-18 17:00 | Outpatient (CLI) | payer MEDICARE, MEDICAID | END 2017-04-18 17:01 | disposition critical access hospital (66) | LOC: EMS 17:00 | PROVIDERS: ATTEND Surgery | DX: F41.9 Anxiety disorder, unspecified (principal) | CPT/HCPCS: A0425; A0429 ==

== ENCOUNTER 2017-04-18 17:16 | Emergency (ER) | payer MEDICARE, MEDICAID ==
[2017-04-18 17:30] VITALS: BP 161/82
[2017-04-18] MEDS ORDERED: LORazepam 2 MG/ML SYRINGE IM STA (17:33)
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
[2017-04-18] MEDS ORDERED: LORazepam 2 MG/ML SYRINGE ONE (17:43)
== END 2017-04-18 18:22 | disposition home or self-care (01) ==
LOC: EDUNIT# → ED 17:16
DX: F41.9 Anxiety disorder, unspecified (principal); Z91.14 Patient's other noncompliance with medication regimen
CPT/HCPCS: 96372; 99283; 99284; J2060

== ENCOUNTER 2017-04-19 21:45 | Outpatient (CLI) | payer MEDICARE, MEDICAID | END 2017-04-19 21:46 | disposition critical access hospital (66) | LOC: EMS 21:45 | PROVIDERS: ATTEND Surgery | DX: F41.9 Anxiety disorder, unspecified (principal); G89.29 Other chronic pain | CPT/HCPCS: A0425; A0429 ==

== ENCOUNTER 2017-04-19 21:59 | Emergency (ER) | payer MEDICARE, MEDICAID ==
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
[2017-04-19] MEDS ORDERED: KETOROLAC 60 MG/2 ML VIAL IM STA (22:28)
[2017-04-19] MEDS ORDERED: LORazepam 2 MG/ML SYRINGE IM STA (22:29)
[2017-04-19] MEDS ORDERED: QUEtiapine 25 MG TABLET PO STA (22:34)
[2017-04-19] MEDS ORDERED: LORazepam 2 MG/ML SYRINGE ONE (22:43)
[2017-04-19] MEDS ORDERED: KETOROLAC 60 MG/2 ML VIAL ONE (22:43)
[2017-04-19] MEDS ORDERED: QUEtiapine 100 MG TABLET PO STA (23:00)
[2017-04-19] MEDS ORDERED: QUEtiapine 100 MG TABLET ONE (23:03)
[2017-04-19 23:54] VITALS: BP 104/74
== END 2017-04-19 23:54 | disposition home or self-care (01) ==
LOC: EDUNIT# → ED 21:59
DX: F41.9 Anxiety disorder, unspecified (principal); G47.00 Insomnia, unspecified; G89.29 Other chronic pain; J45.909 Unspecified asthma, uncomplicated; Z98.84 Bariatric surgery status
CPT/HCPCS: 96372; 99283; A9270; J2060

== ENCOUNTER 2017-04-22 16:31 | Outpatient (CLI) | payer MEDICARE, MEDICAID | END 2017-04-22 16:32 | disposition critical access hospital (66) | LOC: EMS 16:31 | PROVIDERS: ATTEND Surgery | DX: R56.9 Unspecified convulsions (principal) | CPT/HCPCS: A0425; A0429 ==

== ENCOUNTER 2017-04-22 16:50 | Emergency (ER) | payer MEDICARE, MEDICAID ==
[2017-04-22 19:22] VITALS: BP 133/94
[2017-04-22 19:35] LABS: BILIRUBIN,URINE NEGATIVE (NEGATIVE); UA CHARGE (STRIP ONLY) YES; UR CULTURE IF IND NOT INDICATED
[2017-04-22] MEDS ORDERED: levETIRAcetam 250 MG TABLET PO STA (20:32)
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
[2017-04-22] MEDS ORDERED: levETIRAcetam 250 MG TABLET ONE (20:40)
== END 2017-04-22 20:45 | disposition home or self-care (01) ==
LOC: ED 16:50
DX: M54.9 Dorsalgia, unspecified (principal); M79.609 Pain in unspecified limb; R53.1 Weakness; W19.XXXA Unspecified fall, initial encounter; Z91.81 History of falling
CPT/HCPCS: 80306; 81003; 93005; 99283; 99284; A9270; 81001; 87086

== ENCOUNTER 2017-05-10 11:32 | Outpatient (CLI) | payer MEDICARE, MEDICAID | END 2017-05-10 11:33 | disposition critical access hospital (66) | LOC: EMS 11:32 | PROVIDERS: ATTEND Surgery | DX: R51 Headache (principal) | CPT/HCPCS: A0425; A0429 ==

== ENCOUNTER 2017-05-10 12:22 | Emergency (ER) | payer MEDICARE, MEDICAID ==
[2017-05-10] MEDS ORDERED: HALOPERIDOL 5 MG/ML VIAL IM STA (12:49)
[2017-05-10] MEDS ORDERED: KETOROLAC 30 MG/ML VIAL IM STA (12:49)
[2017-05-10] MEDS ORDERED: SUMAtriptan 6 MG/0.5 ML VIAL SUBQ STA (12:49)
--- NOTE | 2017-05-10 12:51 | ED Physician Documentation ---
PD HPI HEADACHE - Stated complaint Stated Complaint: MIGRAINE - Chief complaint Chief Complaint: Neuro - History obtained from History obtained from: Patient - History of Present Illness Timing - onset: Other (She has chronic pain, ran out of her Suboxone 2 days ago. Since yesterday she had a gradual onset frontal and "global headache associated with light sensitivity and nausea but no vomiting. There is no neck stiffness. Pain is similar to prior migraines. She tried Excedrin Migraine for it at home without any relief.) Review of Systems Constitutional: denies: Fever, Chills Throat: reports: Reviewed and negative Cardiac: denies: Chest pain / pressure, Palpitations Respiratory: denies: Dyspnea, Cough GI: reports: Nausea. 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 - Present Medications Home Medications: Ambulatory Orders Medication Instructions Recorded Confirmed QUEtiapine [SEROquel] 150 mg PO QPM 06/08/16 05/10/17 Buprenorphine HCl/Naloxone HCl 1 each SL DAILY 10/21/16 05/10/17 [Buprenorphin-Naloxon 8-2 mg Sl] DULoxetine [Cymbalta] 60 mg PO BID 03/29/17 05/10/17 Levetiracetam [Keppra] 750 mg PO BID #60 tablet 03/30/17 05/10/17 clonazePAM [Clonazepam] 2 mg PO BID #10 tablet 04/18/17 05/10/17 - Allergies Allergies/Adverse Reactions: Allergies Allergy/AdvReac Type Severity Reaction Status Date / Time hydrocodone bitartrate * Allergy Mild Rash Verified 04/19/17 22:02 [From Vicodin] diflunisal [From Dolobid] Allergy Unknown Verified 04/19/17 22:02 naproxen [From Naprosyn] Allergy Unknown Verified 04/19/17 22:02 - Social History Does the pt smoke?: No Smoking Status: Never smoker Does the pt drink ETOH?: No Does the pt have substance abuse?: No - Immunizations Immunizations are current?: Yes - POLST Patient has POLST: No PD ED PE NORMAL - Vitals Vital signs reviewed: Yes - General General: Alert and oriented X 3 - HEENT HEENT: PERRL, EOMI, Other (Pupils are dilated and she is light sensitive) - Neck Neck: Supple, no meningeal sign, No bony TTP - Neuro Neuro: Alert and oriented X 3, 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 She is medicated with IM Toradol and Haldol and subcutaneous Imitrex. Departure - Departure Disposition: 01 Home, Self Care Clinical Impression: Headache Qualifiers: Headache type: tension-type Headache chronicity pattern: acute headache Intractability: not intractable Qualified Code(s): G44.209 - Tension-type headache, unspecified, not intractable Condition: Good Record reviewed to determine appropriate education?: Yes Instructions: ED Headache Migraine Comments: Call your doctor to arrange a follow-up appointment, make the next available appointment. In the interim, return anytime if worse or if new symptoms develop. Your blood pressure was elevated today on check into the emergency department. This does not mean that you have hypertension, it is a common phenomenon to come to the emergency department and have elevated blood pressure. I recommend that you see your primary care physician within the week to have it rechecked when you are feeling better.
[2017-05-10] MEDS ORDERED: HALOPERIDOL 5 MG/ML VIAL ONE (13:10)
[2017-05-10] MEDS ORDERED: SUMAtriptan 6 MG/0.5 ML VIAL SUBQ ONE (13:10)
[2017-05-10] MEDS ORDERED: KETOROLAC 30 MG/ML VIAL ONE (13:10)
[2017-05-10 13:22] VITALS: BP 162/111
== END 2017-05-10 14:01 | disposition home or self-care (01) ==
LOC: EDUNIT# → ED 12:22
DX: G44.209 Tension-type headache, unspecified, not intractable (principal); R03.0 Elevated blood-pressure reading, without diagnosis of hypertension
CPT/HCPCS: 96372; 99283

== ENCOUNTER 2017-07-21 13:47 | Outpatient (CLI) | payer MEDICARE, MEDICAID | END 2017-07-21 13:48 | disposition EMS.NT | LOC: EMS 13:47 | PROVIDERS: ATTEND Surgery | DX: R51 Headache (principal) ==

== ENCOUNTER 2017-07-25 12:43 | Outpatient (CLI) | payer MEDICARE, MEDICAID | END 2017-07-25 12:44 | disposition critical access hospital (66) | LOC: EMS 12:43 | PROVIDERS: ATTEND Surgery | DX: R51 Headache (principal); R47.9 Unspecified speech disturbances; R39.9 Unspecified symptoms and signs involving the genitourinary system | CPT/HCPCS: A0425; A0429 ==

== ENCOUNTER 2017-07-25 12:58 | Emergency (ER) | payer MEDICARE, MEDICAID ==
[2017-07-25] MEDS ORDERED: HALOPERIDOL 5 MG/ML VIAL IM STA (14:09)
[2017-07-25] MEDS ORDERED: KETOROLAC 60 MG/2 ML VIAL IM STA (14:09)
[2017-07-25] MEDS ORDERED: SUMAtriptan 6 MG/0.5 ML VIAL SUBQ STA (14:10)
[2017-07-25 15:05] LABS: BILIRUBIN,URINE NEGATIVE (NEGATIVE); GLUCOSE, URINE (UA) NEGATIVE (NEGATIVE); KETONES,URINE (UA) NEGATIVE (NEGATIVE); LEUKOCYTE ESTERASE, URINE NEGATIVE (NEGATIVE); NITRITE,URINE NEGATIVE (NEGATIVE); OCCULT BLOOD,URINE NEGATIVE (NEGATIVE); PROTEIN,URINE NEGATIVE (NEGATIVE); UROBILINOGEN,URINE 0.2 (NORMAL) E.U./dL (NORMAL)
[2017-07-25 15:07] LABS: CLARITY,URINE CLEAR (CLEAR)
[2017-07-25 16:11] VITALS: BP 132/100
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
== END 2017-07-25 16:31 | disposition home or self-care (01) ==
LOC: EDUNIT# → ED 12:58
DX: R51 Headache (principal); R30.0 Dysuria; F32.9 Major depressive disorder, single episode, unspecified; F41.9 Anxiety disorder, unspecified
CPT/HCPCS: 51702; 81001; 81003; 87086; 96372; 99283; 99284

== ENCOUNTER 2017-08-02 14:15 | Outpatient (CLI) | payer MEDICARE, MEDICAID | END 2017-08-02 14:16 | disposition critical access hospital (66) | LOC: EMS 14:15 | PROVIDERS: ATTEND Surgery | DX: R51 Headache (principal) | CPT/HCPCS: A0425; A0429 ==

== ENCOUNTER 2017-08-02 14:30 | Emergency (ER) | payer MEDICARE, MEDICAID ==
--- NOTE | 2017-08-02 14:33 | ED Physician Documentation ---
PD HPI HEADACHE - Stated complaint Stated Complaint: H/A - History obtained from History obtained from: Patient - History of Present Illness Timing - onset: Yesterday Timing - onset during: Rest Timing - duration: Days (1) Timing - details: Gradual onset, Still present Worst headache ever?: No: Worst headache ever? Location: Front, Left Quality: Throbbing, Aching Associated symptoms: Nausea, Other (feeling of body aches and general malaise.) . No: Fever, Stiff neck, Vomiting, Weakness, Numbness Worsened by: Light Contributing factors: No: Possible carbon monoxide, Recent illness, Trauma Similar symptoms before: Diagnosis (she says she does not have history of migraines. However she does have frequent visits to the emergency room for various pain problems and the 2 most recent visits were for migraine type headaches that were improved with migraine targeted IM medications. She currently denies being out of or withdrawing from any medications. She denies being on Suboxone. That had been on her chart from May but apparently has stopped since that time.) Recently seen: Emergency Dept (earlier this month and in May for similar headache complaints.) Review of Systems Constitutional: denies: Fever, Chills Eyes: reports: Photophobia. denies: Loss of vision, Decreased vision Nose: denies: Rhinorrhea / runny nose, Congestion Throat: denies: Sore throat Cardiac: denies: Chest pain / pressure Respiratory: denies: Cough GI: denies: Abdominal Pain, Vomiting, Diarrhea Skin: denies: Rash Neurologic: denies: Focal weakness, Numbness, Difficulty speaking PD PAST MEDICAL HISTORY - Past Medical History Respiratory: Asthma Neuro: Headache/migraine Endocrine/Autoimmune: None GI: Other Psych: Depression, Anxiety Musculoskeletal: Chronic back pain Derm: Herpes zoster - Past Surgical History Past Surgical History: Yes General: Gastric surgery Ortho: Shoulder arthroplasty, 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 - Present Medications Home Medications: Ambulatory Orders Medication Instructions Recorded Confirmed QUEtiapine [SEROquel] 150 mg PO QPM 06/08/16 08/02/17 DULoxetine [Cymbalta] 60 mg PO BID 03/29/17 08/02/17 Levetiracetam [Keppra] 750 mg PO BID #60 tablet 03/30/17 08/02/17 clonazePAM [Clonazepam] 2 mg PO BID #10 tablet 04/18/17 08/02/17 Butalb/Acetaminophen/Caffeine 1 each PO Q6H PRN #20 capsule 08/02/17 [Fioricet 50-300-40 mg Capsule] Dexamethasone [Decadron] 4 mg PO DAILY #5 tablet 08/02/17 Ondansetron Odt [Zofran] 4 mg TL Q6H PRN #10 tablet 08/02/17 - Allergies Allergies/Adverse Reactions: Allergies Allergy/AdvReac Type Severity Reaction Status Date / Time hydrocodone bitartrate * Allergy Mild Rash Verified 08/02/17 14:37 [From Vicodin] diflunisal [From Dolobid] Allergy Unknown Verified 08/02/17 14:37 naproxen [From Naprosyn] Allergy Unknown Verified 08/02/17 14:37 - Social History Does the pt smoke?: No Smoking Status: Never smoker Does the pt drink ETOH?: No Does the pt have substance abuse?: No - Immunizations Immunizations are current?: Yes - POLST Patient has POLST: No PD ED PE NORMAL - Vitals Vital signs reviewed: Yes - General General: Alert and oriented X 3, Well developed/nourished, Other (sobbing about headache. Very cachectic face. Lots of pannus tissue c/w prior obesity with some weight loss. 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 Then given dexamethasone PO to reduce possible rebound. ), considered differential, d/w patient Departure - Departure Disposition: 01 Home, Self Care Clinical Impression: Headache Condition: Stable Record reviewed to determine appropriate education?: Yes Instructions: ED Headache Migraine Follow-Up: DRE BACON MD [Primary Care Provider] - Prescriptions: Butalb/Acetaminophen/Caffeine [Fioricet 50-300-40 mg Capsule] 1 each PO Q6H PRN #20 capsule PRN Reason: Headache Dexamethasone [Decadron] 4 mg PO DAILY #5 tablet Ondansetron Odt [Zofran] 4 mg TL Q6H PRN #10 tablet PRN Reason: Nausea / Vomiting Comments: Tylenol if needed for residual pain. Take the Decadron steroid anti- inflammatory daily for the next 5 days. This would be to try to reduce recurrent or rebound type headaches. For subsequent migraine type headaches, he can try Ondansatron along with Fioricet which is a migraine targeted medication. Follow-up with your primary care for further ongoing treatments. Discharge Date/Time: 08/02/17 16:09
[2017-08-02] MEDS ORDERED: KETOROLAC 60 MG/2 ML VIAL IM STA (14:51)
[2017-08-02] MEDS ORDERED: diphenhydrAMINE INJ 50 MG/ML VIAL IM STA (14:52)
[2017-08-02] MEDS ORDERED: HALOPERIDOL 5 MG/ML VIAL IM STA (14:52)
[2017-08-02] MEDS ORDERED: ONDANSETRON ODT 4 MG TABLET TL STA (14:53)
[2017-08-02] MEDS ORDERED: DEXAMETHASONE 10 MG/ML VIAL PO STA (15:57)
[2017-08-02 16:02] VITALS: BP 118/86
== END 2017-08-02 16:09 | disposition home or self-care (01) ==
LOC: EDUNIT# → ED 14:30
DX: R51 Headache (principal)
CPT/HCPCS: 87275; 87276; 96372; 99283; Q0162

== ENCOUNTER 2017-08-09 20:25 | Outpatient (CLI) | payer MEDICARE, MEDICAID | END 2017-08-09 20:26 | disposition critical access hospital (66) | LOC: EMS 20:25 | PROVIDERS: ATTEND Surgery | DX: R20.8 Other disturbances of skin sensation (principal); R51 Headache | CPT/HCPCS: A0425; A0429 ==

== ENCOUNTER 2017-08-09 20:39 | Emergency (ER) | payer MEDICARE, MEDICAID ==
--- NOTE | 2017-08-09 20:52 | ED Physician Documentation ---
History of Present Illness - Stated complaint Stated Complaint: BURNING SENSATION ALL OVER - Chief complaint Chief Complaint: General - History obtained from History obtained from: Patient, Family, EMS - History of Present Illness Timing: How many days ago (4) - Additonal information Additional information: Patient is a 47 year old female with a history of polysubstance abuse and multiple psychiatric disorders who is presenting to the emergency department for a burning sensation in her body. According to patient, ems and patient's family over the last 4 days patient has had the sensation that her body is burning. Patient thinks that the symptoms started when she quit taking her suboxone. Review of Systems Constitutional: reports: Fever, Chills, Myalgias Eyes: denies: Decreased vision Ears: denies: Ear pain, Drainage/discharge Nose: denies: Congestion Throat: denies: Oral lesions / sores, Sore throat Cardiac: denies: Chest pain / pressure, Palpitations Respiratory: denies: Dyspnea, Cough GI: denies: Nausea, Vomiting : reports: Reviewed and negative Skin: denies: Rash, Lesions, Abrasion (s), Laceration (s) Musculoskeletal: reports: Neck pain, Back pain, Extremity pain, Joint pain Neurologic: reports: Generalized weakness, Headache. 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 - Present Medications Home Medications: Ambulatory Orders Medication Instructions Recorded Confirmed QUEtiapine [SEROquel] 150 mg PO QPM 06/08/16 08/02/17 DULoxetine [Cymbalta] 60 mg PO BID 03/29/17 08/02/17 Levetiracetam [Keppra] 750 mg PO BID #60 tablet 03/30/17 08/02/17 clonazePAM [Clonazepam] 2 mg PO BID #10 tablet 04/18/17 08/02/17 Butalb/Acetaminophen/Caffeine 1 each PO Q6H PRN #20 capsule 08/02/17 [Fioricet 50-300-40 mg Capsule] Dexamethasone [Decadron] 4 mg PO DAILY #5 tablet 08/02/17 Ondansetron Odt [Zofran] 4 mg TL Q6H PRN #10 tablet 08/02/17 - Allergies Allergies/Adverse Reactions: Allergies Allergy/AdvReac Type Severity Reaction Status Date / Time No Known Drug Allergies Allergy Verified 08/09/17 20:48 - Social History Does the pt smoke?: No Smoking Status: Never smoker Does the pt drink ETOH?: No Does the pt have substance abuse?: No - Immunizations Immunizations are current?: Yes - POLST Patient has POLST: No PD ED PE NORMAL - Vitals Vital signs reviewed: Yes - General General: No acute distress - HEENT HEENT: Atraumatic, PERRL - Neck Neck: Supple, no meningeal sign - Cardiac Cardiac: RRR, No murmur - Respiratory Respiratory: No respiratory distress - Abdomen Abdomen: Soft, Non distended - Derm Derm: Normal color, Warm and dry, No rash - Extremities Extremities: No deformity - Neuro Neuro: No motor deficit, Normal speech Eye Opening: Spontaneous Motor: Obeys Commands Verbal: Oriented GCS Score: 15 PD ED PE EXPANDED - HEENT HEENT: Dry mucous membranes, Other (multiple missing teeth) - Psych Psych: Anxious, Tactile hallucinations Results - Vitals Vitals: Vital Signs - 24 hr 08/09/17 08/09/17 20:44 22:01 Temperature 36.1 C L Heart Rate 72 62 Respiratory 18 15 Rate Blood Pressure 142/111 H 142/104 H O2 Saturation 99 96 Oxygen O2 Source Room air - Labs Labs: Laboratory Tests 08/09/17 08/09/17 08/09/17 21:20 21:29 21:29 WBC 6.1 RBC 4.74 Hgb 15.6 Hct 44.7 MCV 94.3 MCH 32.9 H MCHC 34.9 RDW 16.1 H Plt Count 314 MPV 9.7 Neut # 4.0 Lymph # 1.6 Crenshaw # 0.4 Eos # 0.1 Baso # 0.0 Absolute Nucleated RBC 0.01 Nucleated RBC % 0.1 Sodium 134 L Potassium 3.4 L Chloride 97 L Carbon Dioxide 21 Anion Gap 16.0 H BUN 14 Creatinine 0.7 Estimated GFR (MDRD) 90 Glucose 120 H Calcium 9.3 Total Bilirubin 0.8 AST 21 ALT 15 Alkaline Phosphatase 76 Total Protein 8.1 Albumin 4.0 Globulin 4.1 Albumin/Globulin Ratio 1.0 Lipase 11 L Urine Color YELLOW Urine Clarity CLEAR Urine pH 6.5 Ur Specific [place] 1.025 Urine Protein NEGATIVE Urine Glucose (UA) NEGATIVE Urine Ketones 40 H Urine Occult Blood NEGATIVE Urine Nitrite NEGATIVE Urine Bilirubin NEGATIVE Urine Urobilinogen 1 (NORMAL) Ur Leukocyte Esterase NEGATIVE Ur Microscopic Review NOT INDICATED Urine Culture Comments NOT INDICATED Urine Opiates Screen POSITIVE H Ur Oxycodone Screen POSITIVE H Urine Methadone Screen NEGATIVE Ur Propoxyphene Screen NEGATIVE Ur Barbiturates Screen POSITIVE H Ur Tricyclics Screen POSITIVE H Ur Phencyclidine Scrn NEGATIVE Ur Amphetamine Screen NEGATIVE U Methamphetamines Scrn NEGATIVE U Benzodiazepines Scrn NEGATIVE Urine Cocaine Screen NEGATIVE U Cannabinoids Screen NEGATIVE PD MEDICAL DECISION MAKING - ED course Complexity details: reviewed old records, reviewed results, re-evaluated patient , considered differential, d/w patient ED course: Patient was seen and examined at bedside. Patient was afebrile. labs and urine were collected and showed no major abnormalities. Patient required no further inpatient work up and was stable for discharge with outpatient follow up. Departure - Departure Disposition: 01 Home, Self Care Clinical Impression: Somatic complaints, multiple Condition: Good Instructions: ED Drug React Adverse Other Follow-Up: primary,care provider [Other] - As Needed Comments: Your diagnostics today were within normal limits. Your symptoms are likely secondary to the multiple medications and partially due to somatization of psychiatric disorder. You will need to follow up with your doctor for further evaluation and care.
[2017-08-09] MEDS ORDERED: LORazepam 0.5 MG TABLET PO STA (20:53)
[2017-08-09 21:37] LABS: BASOPHILS % (AUTO) 0.3 %; EOSINOPHILS # (AUTO) 0.1 10^3/uL (0.0-0.7); HGB - HEMOGLOBIN 15.6 g/dL (12.0-16.0); LYMPHOCYTES # (AUTO) 1.6 10^3/uL (1.5-3.5); LYMPHOCYTES % (AUTO) 26.2 %; MEAN CORPUSCULAR HEMOGLOBIN 32.9 pg (27.0-31.0); MEAN CORPUSCULAR HGB CONC 34.9 g/dL (32.0-36.0); MEAN CORPUSCULAR VOLUME 94.3 fL (81.0-99.0); MEAN PLATELET VOLUME 9.7 fL (7.9-10.8); MONOCYTES # (AUTO) 0.4 10^3/uL (0.0-1.0); NEUTROPHILS % (AUTO) 65.5 %; PLT - PLATELET COUNT 314 10^3/uL (130-450); RED BLOOD COUNT 4.74 10^6/uL (4.20-5.40); RED CELL DISTRIBUTION WIDTH 16.1 % (12.0-15.0); WHITE BLOOD COUNT 6.1 x10^3/uL (4.8-10.8)
[2017-08-09 21:48] LABS: BILIRUBIN,TOTAL 0.8 mg/dL (0.2-1.0); CALCIUM 9.3 mg/dL (8.5-10.3); CREATININE 0.7 mg/dL (0.4-1.0); TOTAL PROTEIN 8.1 g/dL (6.7-8.2)
[2017-08-09 22:02] VITALS: BP 142/104
[2017-08-09 22:02] LABS: MUDS CUTOFF CONCENTRATIONS CUTOFF CONC BELOW:
[2017-08-09 22:04] LABS: BILIRUBIN,URINE NEGATIVE (NEGATIVE); GLUCOSE, URINE (UA) NEGATIVE (NEGATIVE); KETONES,URINE (UA) 40 mg/dL (NEGATIVE); LEUKOCYTE ESTERASE, URINE NEGATIVE (NEGATIVE); NITRITE,URINE NEGATIVE (NEGATIVE); OCCULT BLOOD,URINE NEGATIVE (NEGATIVE); PH,URINE 6.5 PH (5.0-7.5); PROTEIN,URINE NEGATIVE (NEGATIVE); UROBILINOGEN,URINE 1 (NORMAL) E.U./dL (NORMAL)
[2017-08-09 22:12] LABS: CLARITY,URINE CLEAR (CLEAR)
[2017-08-09 22:14] LABS: AMPHETAMINE SCREEN,URINE NEGATIVE (NEGATIVE); BENZODIAZEPINES SCREEN, URINE NEGATIVE (NEGATIVE); COCAINE SCREEN URINE NEGATIVE (NEGATIVE); METHADONE SCREEN, URINE NEGATIVE (NEGATIVE); METHAMPHETAMINES SCREEN, URINE NEGATIVE (NEGATIVE); OPIATE SCREEN, URINE POSITIVE (NEGATIVE); TRICYCLIC ANTIDEPRESSANT,URINE POSITIVE (NEGATIVE)
[2017-08-09 22:15] LABS: OXYCODONE SCREEN, URINE POSITIVE (NEGATIVE); PROPOXYPHENE SCREEN, URINE NEGATIVE (NEGATIVE)
== END 2017-08-09 22:30 | disposition home or self-care (01) ==
LOC: EDUNIT# → ED 20:39
DX: R68.89 Other general symptoms and signs (principal); F32.9 Major depressive disorder, single episode, unspecified; F41.9 Anxiety disorder, unspecified; F22 Delusional disorders
CPT/HCPCS: 36415; 51701; 80053; 80306; 81003; 83690; 85025; 99283; A9270; 81001; 87086

== ENCOUNTER 2017-10-19 12:11 | Outpatient (CLI) | payer MEDICARE, MEDICAID | END 2017-10-19 12:12 | disposition critical access hospital (66) | LOC: EMS 12:11 | PROVIDERS: ATTEND Surgery | DX: R53.1 Weakness (principal); R53.81 Other malaise | CPT/HCPCS: A0425; A0429 ==

== ENCOUNTER 2017-10-19 12:27 | Emergency (ER) | payer MEDICARE, MEDICAID ==
[2017-10-19 12:33] VITALS: BP 131/96
[2017-10-19] MEDS ORDERED: LORazepam 0.5 MG TABLET PO STA (12:49)
[2017-10-19] MEDS ORDERED: cloNIDine 0.1 MG TABLET PO STA (12:49)
--- NOTE | 2017-10-19 12:52 | ED Physician Documentation ---
History of Present Illness - Stated complaint Stated Complaint: sick - Chief complaint Chief Complaint: General - History obtained from History obtained from: Patient - History of Present Illness Timing: Other (She ran out of her Suboxone which she uses for pain management a couple of days ago. She is very evasive about how it happened, she says it got port in the trash. She does not know how it got poured in the trash. Regardless she has not had her Suboxone in a couple of days and she feels hot all over and restless. She denies nausea or diarrhea.) Review of Systems Constitutional: reports: Sweats. 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 - Present Medications Home Medications: Ambulatory Orders Medication Instructions Recorded Confirmed QUEtiapine [SEROquel] 150 mg PO QPM 06/08/16 08/02/17 DULoxetine [Cymbalta] 60 mg PO BID 03/29/17 08/02/17 Levetiracetam [Keppra] 750 mg PO BID #60 tablet 03/30/17 08/02/17 clonazePAM [Clonazepam] 2 mg PO BID #10 tablet 04/18/17 08/02/17 Butalb/Acetaminophen/Caffeine 1 each PO Q6H PRN #20 capsule 08/02/17 [Fioricet 50-300-40 mg Capsule] Dexamethasone [Decadron] 4 mg PO DAILY #5 tablet 08/02/17 Ondansetron Odt [Zofran] 4 mg TL Q6H PRN #10 tablet 08/02/17 Lorazepam [Ativan] 1 mg PO TID PRN #7 tablet 10/19/17 cloNIDine [Catapres] 0.1 mg PO TID #6 tablet 10/19/17 - Allergies Allergies/Adverse Reactions: Allergies Allergy/AdvReac Type Severity Reaction Status Date / Time No Known Drug Allergies Allergy Verified 10/19/17 12:33 - Social History Does the pt smoke?: No Smoking Status: Never smoker Does the pt drink ETOH?: No Does the pt have substance abuse?: No - Immunizations Immunizations are current?: Yes - POLST Patient has POLST: No PD ED PE NORMAL - Vitals Vital signs reviewed: Yes - General General: Alert and oriented X 3, Other (She is restless but cooperative) - HEENT HEENT: Other (Large pupils, not "pie plate") - Derm Derm: Normal color, Warm and dry, No rash - Neuro Neuro: Alert and oriented X 3, Normal speech Results - Vitals Vitals: Vital Signs - 24 hr 10/19/17 12:28 Temperature 36.2 C L Heart Rate 114 H Respiratory 20 Rate Blood Pressure 131/96 H O2 Saturation 99 Oxygen O2 Source Room air Departure - Departure Disposition: 01 Home, Self Care Clinical Impression: Opiate withdrawal Condition: Good Record reviewed to determine appropriate education?: Yes Instructions: ED Withdrawal Narcotic Prescriptions: cloNIDine [Catapres] 0.1 mg PO TID #6 tablet Lorazepam [Ativan] 1 mg PO TID PRN #7 tablet PRN Reason: Anxiety Comments: As discussed, the emergency department cannot prescribe or dispense Suboxone or refill or replace lost or stolen prescriptions or medications that have been inadvertently poured in the trash. The prescription should help with your withdrawal symptoms and he should call your pain management doctor tomorrow for further guidance.
== END 2017-10-19 12:58 | disposition home or self-care (01) ==
LOC: EDUNIT# → ED 12:27
DX: F11.23 Opioid dependence with withdrawal (principal); T40.4X6A Underdosing of other synthetic narcotics, initial encounter; Z91.138 Patient's unintentional underdosing of medication regimen for other reason
CPT/HCPCS: 99283; A9270

== ENCOUNTER 2018-02-27 21:38 | Emergency (ER) | payer MEDICARE, MEDICAID ==
[2018-02-27 21:48] VITALS: BP 152/97
[2018-02-27] MEDS ORDERED: QUEtiapine 100 MG TABLET PO STA (21:58)
[2018-02-27] MEDS ORDERED: cloNIDine 0.1 MG TABLET PO STA (21:58)
[2018-02-27] MEDS ORDERED: QUEtiapine 25 MG TABLET PO STA (21:58)
[2018-02-27] MEDS ORDERED: LORazepam 0.5 MG TABLET PO STA (21:58)
--- NOTE | 2018-02-27 22:00 | ED Physician Documentation ---
History of Present Illness - Stated complaint Stated Complaint: SHAKY/NEEDS MEDS - Chief complaint Chief Complaint: General - History obtained from History obtained from: Patient - History of Present Illness Timing: Today (She has chronic back pain and is maintained on Suboxone. Robin was notified that her pain management physician was quitting and ran out of her medications. She has an appoint with a new pain management physician in 6 days but is feeling shaky and anxious. She needs her Suboxone and Seroquel. 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 - Present Medications Home Medications: Ambulatory Orders Medication Instructions Recorded Confirmed QUEtiapine [SEROquel] 150 mg PO QPM 06/08/16 08/02/17 DULoxetine [Cymbalta] 60 mg PO BID 03/29/17 08/02/17 Levetiracetam [Keppra] 750 mg PO BID #60 tablet 03/30/17 08/02/17 clonazePAM [Clonazepam] 2 mg PO BID #10 tablet 04/18/17 08/02/17 Butalb/Acetaminophen/Caffeine 1 each PO Q6H PRN #20 capsule 08/02/17 [Fioricet 50-300-40 mg Capsule] Dexamethasone [Decadron] 4 mg PO DAILY #5 tablet 08/02/17 Ondansetron Odt [Zofran] 4 mg TL Q6H PRN #10 tablet 08/02/17 Lorazepam [Ativan] 1 mg PO TID PRN #7 tablet 10/19/17 cloNIDine [Catapres] 0.1 mg PO TID #6 tablet 10/19/17 Lorazepam [Ativan] 1 mg PO TID PRN #7 tablet 02/27/18 Ondansetron Odt [Zofran] 4 mg TL Q6H PRN #10 tablet 02/27/18 Quetiapine Fumarate [Seroquel Xr] 150 mg PO QPM #7 tab.er.24h 02/27/18 cloNIDine [Catapres] 0.1 mg PO TID #6 tablet 02/27/18 - Allergies Allergies/Adverse Reactions: Allergies Allergy/AdvReac Type Severity Reaction Status Date / Time naproxen AdvReac Anaphylaxis Verified 02/27/18 21:51 - Social History Does the pt smoke?: No Smoking Status: Never smoker Does the pt drink ETOH?: No Does the pt have substance abuse?: No - Immunizations Immunizations are current?: Yes - POLST Patient has POLST: No PD ED PE NORMAL - Vitals Vital signs reviewed: Yes - General General: Alert and oriented X 3, No acute distress - Neuro Neuro: Alert and oriented X 3, Normal speech - Psych Psych: Normal mood, Normal affect Results - Vitals Vitals: Vital Signs - 24 hr 02/27/18 21:45 Temperature 36.8 C Heart Rate 82 Respiratory 16 Rate Blood Pressure 152/97 H O2 Saturation 99 Oxygen O2 Source Room air PD MEDICAL DECISION MAKING - ED course ED course: I discussed with her that I was unable to prescribe or dispense Suboxone for ongoing pain management and she is understanding. We have had conversations like this before. She did receive a dose of Seroquel here in the past and in the past she has had decent luck with withdrawal symptoms with clonidine and Ativan. - Sepsis Event Vital Signs: Vital Signs - 24 hr 02/27/18 21:45 Temperature 36.8 C Heart Rate 82 Respiratory 16 Rate Blood Pressure 152/97 H O2 Saturation 99 Oxygen O2 Source Room air Departure - Departure Disposition: 01 Home, Self Care Clinical Impression: Opiate withdrawal Condition: Good Record reviewed to determine appropriate education?: Yes Instructions: ED Withdrawal Narcotic Prescriptions: cloNIDine [Catapres] 0.1 mg PO TID #6 tablet Lorazepam [Ativan] 1 mg PO TID PRN #7 tablet PRN Reason: Anxiety Ondansetron Odt [Zofran] 4 mg TL Q6H PRN #10 tablet PRN Reason: Nausea / Vomiting Quetiapine Fumarate [Seroquel Xr] 150 mg PO QPM #7 tab.er.24h Comments: Call your doctor to arrange a follow-up appointment, make the next available appointment. In the interim, return anytime if worse or if new symptoms develop. Your blood pressure was elevated today on check into the emergency department. This does not mean that you have hypertension, it is a common phenomenon to come to the emergency department and have elevated blood pressure. I recommend that you see your primary care physician within the week to have it rechecked when you are feeling better.
[2018-02-27] MEDS ORDERED: ONDANSETRON ODT 4 MG TABLET TL STA (22:06)
== END 2018-02-27 22:19 | disposition home or self-care (01) ==
LOC: ED 21:38
DX: F11.23 Opioid dependence with withdrawal (principal); T40.2X5A Adverse effect of other opioids, initial encounter; R03.0 Elevated blood-pressure reading, without diagnosis of hypertension
CPT/HCPCS: 99283; A9270; Q0162

== ENCOUNTER 2018-05-06 16:44 | Emergency (ER) | payer MEDICARE, MEDICAID ==
[2018-05-06 16:57] VITALS: BP 116/89
--- NOTE | 2018-05-06 17:08 | ED Physician Documentation ---
History of Present Illness - Stated complaint Stated Complaint: NEED MEDS - Chief complaint Chief Complaint: General - History obtained from History obtained from: Patient - History of Present Illness Timing: Today Pain level max: 0 Pain level now: 0 Improved by: nothing Worsened by: nothing - Additonal information Additional information: Patient is a 48-year-old female who is been on Suboxone she states for several years. She states her PCP retired and does not have a new appointment until 1219. States she is out of Suboxone and going through narcotic withdrawals.. She is requesting Ativan and clonidine to help her with the withdrawals as this has worked in the past. 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 - Present Medications Home Medications: Ambulatory Orders Medication Instructions Recorded Confirmed QUEtiapine [SEROquel] 150 mg PO QPM 06/08/16 08/02/17 DULoxetine [Cymbalta] 60 mg PO BID 03/29/17 08/02/17 Levetiracetam [Keppra] 750 mg PO BID #60 tablet 03/30/17 08/02/17 clonazePAM [Clonazepam] 2 mg PO BID #10 tablet 04/18/17 08/02/17 Butalb/Acetaminophen/Caffeine 1 each PO Q6H PRN #20 capsule 08/02/17 [Fioricet 50-300-40 mg Capsule] Dexamethasone [Decadron] 4 mg PO DAILY #5 tablet 08/02/17 Ondansetron Odt [Zofran] 4 mg TL Q6H PRN #10 tablet 08/02/17 Lorazepam [Ativan] 1 mg PO TID PRN #7 tablet 10/19/17 Lorazepam [Ativan] 1 mg PO TID PRN #7 tablet 02/27/18 Ondansetron Odt [Zofran] 4 mg TL Q6H PRN #10 tablet 02/27/18 Quetiapine Fumarate [Seroquel Xr] 150 mg PO QPM #7 tab.er.24h 02/27/18 cloNIDine [Catapres] 0.1 mg PO TID #6 tablet 02/27/18 Lorazepam [Ativan] 1 mg PO TID PRN #7 tablet 05/06/18 cloNIDine [Catapres] 0.1 mg PO TID #6 tablet 05/06/18 - Allergies Allergies/Adverse Reactions: Allergies Allergy/AdvReac Type Severity Reaction Status Date / Time naproxen AdvReac Anaphylaxis Verified 05/06/18 16:57 - Social History Does the pt smoke?: No Smoking Status: Never smoker Does the pt drink ETOH?: No Does the pt have substance abuse?: No - Immunizations Immunizations are current?: Yes - POLST Patient has POLST: No PD ED PE NORMAL - Vitals Vital signs reviewed: Yes - General General: Alert and oriented X 3, No acute distress - HEENT HEENT: Moist mucous membranes - Neck Neck: Supple, no meningeal sign - Cardiac Cardiac: RRR - Respiratory Respiratory: No respiratory distress, Clear bilaterally - Abdomen Abdomen: Soft, Non tender, Non distended - Derm Derm: Warm and dry - Neuro Neuro: Alert and oriented X 3 Results - Vitals Vitals: Vital Signs - 24 hr 05/06/18 16:53 Temperature 37.0 C Heart Rate 92 Respiratory 16 Rate Blood Pressure 116/89 H O2 Saturation 98 Oxygen O2 Source Room air PD MEDICAL DECISION MAKING - ED course Complexity details: considered differential, d/w patient ED course: Patient is a 48-year-old female who presents to the emergency department with narcotic withdrawal. Will prescribe a small amount of medications to help her through this and have her follow-up with her doctor. Informed her that she needs to create a plan with her doctor for future times that she runs out of medication. Patient counseled regarding signs and symptoms for which I believe and urgent re-evaluation would be necessary. Patient with good understanding of and agreement to plan and is comfortable going home at this time This document was made in part using voice recognition software. While efforts are made to proofread this document, sound alike and grammatical errors may occur. Departure - Departure Disposition: 01 Home, Self Care Clinical Impression: Narcotic withdrawal Condition: Good Instructions: ED Withdrawal Narcotic Follow-Up: your,doctor in 1 week [Other] Prescriptions: cloNIDine [Catapres] 0.1 mg PO TID #6 tablet Lorazepam [Ativan] 1 mg PO TID PRN #7 tablet PRN Reason: narcotic withdrawal Comments: You need to follow-up with your doctor for further care of your narcotic withdrawal. Return if you worsen Discharge Date/Time: 05/06/18 18:15
== END 2018-05-06 18:15 | disposition home or self-care (01) ==
LOC: ED 16:44
DX: F19.939 Other psychoactive substance use, unspecified with withdrawal, unspecified (principal)
CPT/HCPCS: 99282; 99283

== ENCOUNTER 2018-06-06 12:21 | Outpatient (CLI) | payer MEDICARE, MEDICAID | END 2018-06-06 12:22 | disposition critical access hospital (66) | LOC: EMS 12:21 | PROVIDERS: ATTEND Surgery | DX: R00.0 Tachycardia, unspecified (principal); R10.9 Unspecified abdominal pain; R45.89 Other symptoms and signs involving emotional state | CPT/HCPCS: A0425; A0429 ==

== ENCOUNTER 2018-06-06 12:53 | Emergency (ER) | payer MEDICARE, MEDICAID ==
[2018-06-06] MEDS ORDERED: SODIUM CHLORIDE 0.9% 1,000 ML IV ONE (13:12)
--- NOTE | 2018-06-06 13:26 | ED Physician Documentation ---
PD HPI ABD PAIN - Stated complaint Stated Complaint: ANXIOUS/ ABD PX - Chief complaint Chief Complaint: Abd Pain - History obtained from History obtained from: Patient - History of Present Illness Timing - onset: How many weeks ago (2) Timing - duration: Weeks (2) Timing - details: Gradual onset, Still present, Still present in ED Pain level max: 8 Pain level now: 8 Quality: Sharp Location: RUQ Radiation: Other (no radiation) Improved by: Other (nothing) Worsened by: Other (nothing) Associated symptoms: No: Fever, Nausea, Vomiting, Hematemesis, Diarrhea, Constipation, Melena, Hematochezia, Dysuria, Hematuria, Chest pain, Dizzy, Near syncope / syncope, Loss of appetite, Weight loss, Vaginal bleeding Similar symptoms before: Work up / diagnostics, Treatment, Follow up Recently seen: Clinic - Additional information Additional information: 48-year-old female with history of seizure, asthma, chronic back pain, Gastric bypass years ago, tubal ligation years ago and cholecystectomy 2 weeks ago at [facility] here with complaint of right upper quadrant pain since her surgery. She had seen the surgeon the other day and was told she does not require any pain medication. Patient stated she used to be in heroin then methadone which was later switched to Suboxone by her primary doctor. However her primary doctor retired so she has not had any Suboxone since January 2018. Patient was here last May 06, 2018 for Suboxone withdrawal and was pre scribed clonidine and Ativan for short for a short period. Patient stated. She feels she is still on Suboxone withdrawal so she had just been smoking and snorting crack cocaine which she did yesterday and today. Review of Systems Ten Systems: 10 systems reviewed and negative Constitutional: denies: Fever, Chills, Myalgias Throat: denies: Sore throat Cardiac: denies: Chest pain / pressure Respiratory: denies: Dyspnea, Cough GI: reports: Abdominal Pain. denies: Abdominal Swelling, Nausea, Vomiting, Constipation, Diarrhea, Hematemesis, Bloody / black stool : denies: Dysuria Musculoskeletal: reports: Back pain (Chronic). 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 - Present Medications Home Medications: Ambulatory Orders Medication Instructions Recorded Confirmed QUEtiapine [SEROquel] 150 mg PO QPM 06/08/16 08/02/17 RX: DULoxetine [Cymbalta] 60 mg PO BID 03/29/17 08/02/17 Levetiracetam [Keppra] 750 mg PO BID #60 tablet 03/30/17 08/02/17 clonazePAM [Clonazepam] 2 mg PO BID #10 tablet 04/18/17 08/02/17 Butalb/Acetaminophen/Caffeine 1 each PO Q6H PRN #20 capsule 08/02/17 [Fioricet 50-300-40 mg Capsule] Dexamethasone [Decadron] 4 mg PO DAILY #5 tablet 08/02/17 Ondansetron Odt [Zofran] 4 mg TL Q6H PRN #10 tablet 08/02/17 Lorazepam [Ativan] 1 mg PO TID PRN #7 tablet 10/19/17 Lorazepam [Ativan] 1 mg PO TID PRN #7 tablet 02/27/18 Ondansetron Odt [Zofran] 4 mg TL Q6H PRN #10 tablet 02/27/18 Quetiapine Fumarate [Seroquel Xr] 150 mg PO QPM #7 tab.er.24h 02/27/18 RX: cloNIDine [Catapres] 0.1 mg PO TID #6 tablet 02/27/18 Lorazepam [Ativan] 1 mg PO TID PRN #7 tablet 05/06/18 RX: cloNIDine [Catapres] 0.1 mg PO TID #6 tablet 05/06/18 RX: Potassium Chloride [Klor-Con] 20 meq PO BID 2 Days #4 packet 06/06/18 - Allergies Allergies/Adverse Reactions: Allergies Allergy/AdvReac Type Severity Reaction Status Date / Time naproxen AdvReac Anaphylaxis Verified 05/06/18 16:57 - Social History Does the pt smoke?: No Smoking Status: Never smoker Does the pt drink ETOH?: No Does the pt have substance abuse?: No - Immunizations Immunizations are current?: Yes - POLST Patient has POLST: No PD ED PE NORMAL - Vitals Vital signs reviewed: Yes - General General: Alert and oriented X 3, No acute distress, Well developed/nourished, Other (Patient seems anxious and requesting for pain medication and medication to bring her down after she snorted crack cocaine prior to coming to the emergency room.) - HEENT HEENT: Atraumatic, PERRL, EOMI, Moist mucous membranes, Pharynx benign - Neck Neck: Supple, no meningeal sign - Cardiac Cardiac: RRR, No murmur - Respiratory Respiratory: No respiratory distress, Clear bilaterally - Abdomen Abdomen: Normal bowel sounds, Soft, Non distended, Other (Mild right upper right upper quadrant and epigastric tenderness with palpation. No rigidity. No rebound. No guarding. Patient still has Steri-Strips on choley lap procedure that was done 2 weeks ago.) - Derm Derm: Normal color, Warm and dry - Extremities Extremities: No deformity, No tenderness to palpate, Normal ROM s pain, No edema - Neuro Neuro: Alert and oriented X 3, Normal speech - Psych Psych: Other (Patient appears anxious and requesting for pain medication.) Results - Vitals Vitals: Vital Signs - 24 hr 06/06/18 06/06/18 06/06/18 13:04 13:41 14:51 Temperature 37.1 C Heart Rate 98 100 86 Respiratory 18 18 21 Rate Blood Pressure 127/92 H 121/90 H 124/89 H O2 Saturation 100 98 97 Oxygen O2 Source Room air - EKG (time done) 1320 Rate: Rate (enter#) (82 ) Rhythm: NSR [place]: LAD Intervals: Normal LA QRS: Normal Ischemia: Non specific changes - Labs Labs: Laboratory Tests 06/06/18 06/06/18 06/06/18 13:14 13:14 13:14 WBC 5.4 RBC 4.44 Hgb 14.2 Hct 41.0 MCV 92.3 MCH 32.0 H MCHC 34.7 RDW 17.5 H Plt Count 389 MPV 9.5 Neut # (Auto) 3.4 Lymph # (Auto) 1.5 [place] # (Auto) 0.3 Eos # (Auto) 0.0 Baso # (Auto) 0.0 Absolute Nucleated RBC 0.00 Nucleated RBC % 0.0 Sodium 137 Potassium 2.9 L Chloride 97 L Carbon Dioxide 30 Anion Gap 10.0 BUN 8 Creatinine 0.8 Estimated GFR (MDRD) 77 L Glucose 95 Calcium 8.8 Magnesium Total Bilirubin 0.7 AST 21 ALT 14 Alkaline Phosphatase 138 H Troponin I < 0.04 Total Protein 7.9 Albumin 3.8 Globulin 4.1 Albumin/Globulin Ratio 0.9 L Lipase 26 Urine Color Urine Clarity Urine pH Ur Specific [place] Urine Protein Urine Glucose (UA) Urine Ketones Urine Occult Blood Urine Nitrite Urine Bilirubin Urine Urobilinogen Ur Leukocyte Esterase Ur Microscopic Review Urine Culture Comments Urine HCG, Qual Urine Opiates Screen Ur Oxycodone Screen Urine Methadone Screen Ur Propoxyphene Screen Ur Barbiturates Screen Ur Tricyclics Screen Ur Phencyclidine Scrn Ur Amphetamine Screen U Methamphetamines Scrn U Benzodiazepines Scrn Urine Cocaine Screen U Cannabinoids Screen 06/06/18 06/06/18 06/06/18 13:14 13:20 13:20 WBC RBC Hgb Hct MCV MCH MCHC RDW Plt Count MPV Neut # (Auto) Lymph # (Auto) [place] # (Auto) Eos # (Auto) Baso # (Auto) Absolute Nucleated RBC Nucleated RBC % Sodium Potassium Chloride Carbon Dioxide Anion Gap BUN Creatinine Estimated GFR (MDRD) Glucose Calcium Magnesium 2.2 Total Bilirubin AST ALT Alkaline Phosphatase Troponin I Total Protein Albumin Globulin Albumin/Globulin Ratio Lipase Urine Color YELLOW Urine Clarity CLEAR Urine pH 6.5 Ur Specific [place] <=1.005 <=1.005 Urine Protein NEGATIVE Urine Glucose (UA) NEGATIVE Urine Ketones NEGATIVE Urine Occult Blood NEGATIVE Urine Nitrite NEGATIVE Urine Bilirubin NEGATIVE Urine Urobilinogen 0.2 (NORMAL) Ur Leukocyte Esterase NEGATIVE Ur Microscopic Review NOT INDICATED Urine Culture Comments NOT INDICATED Urine HCG, Qual NEGATIVE Urine Opiates Screen NEGATIVE Ur Oxycodone Screen NEGATIVE Urine Methadone Screen NEGATIVE Ur Propoxyphene Screen NEGATIVE Ur Barbiturates Screen NEGATIVE Ur Tricyclics Screen POSITIVE H Ur Phencyclidine Scrn NEGATIVE Ur Amphetamine Screen NEGATIVE U Methamphetamines Scrn NEGATIVE U Benzodiazepines Scrn NEGATIVE Urine Cocaine Screen POSITIVE H U Cannabinoids Screen NEGATIVE PD MEDICAL DECISION MAKING - ED course Complexity details: reviewed results, re-evaluated patient, considered differential (Postop complication after cholecystectomy, obstruction, pancreatitis, anxiety related to crack cocaine usage, drug dependence), d/w patient ED course: 8595 Patient informed of lab results. Patient states she has history of hypokalemia since her gastric bypass surgery. Will replace potassium. Patient requesting for antianxiety medication as she is feeling anxious. Will give Ativan 1 mg IV. 1530 per nurse patient is requesting for more Ativan to relax her prior to going to the CAT scan. Patient informed that she should have her CAT scan and will reevaluate the need for Ativan. 1630 Pt NAD and nontoxic appearing. Abdomen soft nontender. Patient informed of negative CT scan results. Patient insisting on getting Ativan IV now. She states Ativan tablet does not work fast enough. Patient trying to negotiate to get Ativan for immediate relief of her anxiety. She was informed that the crack cocaine is making her anxious. Patient states she does not plan on taking it again. Patient wants to go home with prescription for clonazepam and pain medication. Patient stated her primary doctor had retired in January. She stated she went to another doctor but had refused to prescribe her benzodiazepine and narcotic pain medication. Patient informed she will be discharge and patient stated she cannot because she has no ride and she does not take the bus. Nurse informed. Departure - Departure Disposition: Home, Self Care Clinical Impression: Drug-seeking behavior, Hypokalemia, Polysubstance dependence Abdominal pain Qualifiers: Abdominal location: right upper quadrant Qualified Code(s): R10.11 - Right upper quadrant pain Condition: Stable Instructions: ED Diet High Potassium, ED Abdominal Pain Cause Unkn Fem Ch Prescriptions: RX: Potassium Chloride [Klor-Con] 20 meq PO BID 2 Days #4 packet Comments: Eat foods that are high in potassium. Take the potassium medication that was prescribed to you. Follow-up with your primary doctor this week for reevaluation and recheck of your potassium level. If worse return to the emergency room. Discharge Date/Time: 06/06/18 17:19
[2018-06-06 13:29] LABS: BASOPHILS % (AUTO) 0.9 %; EOSINOPHILS % (AUTO) 0.9 %; HGB - HEMOGLOBIN 14.2 g/dL (12.0-16.0); LYMPHOCYTES # (AUTO) 1.5 10^3/uL (1.5-3.5); LYMPHOCYTES % (AUTO) 28.2 %; MEAN CORPUSCULAR HGB CONC 34.7 g/dL (32.0-36.0); MEAN CORPUSCULAR VOLUME 92.3 fL (81.0-99.0); MEAN PLATELET VOLUME 9.5 fL (7.9-10.8); MONOCYTES # (AUTO) 0.3 10^3/uL (0.0-1.0); NEUTROPHILS # (AUTO) 3.4 10^3/uL (1.5-6.6); PLT - PLATELET COUNT 389 10^3/uL (130-450); RED BLOOD COUNT 4.44 10^6/uL (4.20-5.40); RED CELL DISTRIBUTION WIDTH 17.5 % (12.0-15.0); WHITE BLOOD COUNT 5.4 x10^3/uL (4.8-10.8)
[2018-06-06 13:32] LABS: MUDS CUTOFF CONCENTRATIONS CUTOFF CONC BELOW:
[2018-06-06 13:37] LABS: ALBUMIN 3.8 g/dL (3.2-5.5); ALBUMIN/GLOBULIN RATIO 0.9 (1.0-2.2); BILIRUBIN,TOTAL 0.7 mg/dL (0.2-1.0); CALCIUM 8.8 mg/dL (8.5-10.3); CREATININE 0.8 mg/dL (0.4-1.0); TOTAL PROTEIN 7.9 g/dL (6.7-8.2)
[2018-06-06 13:39] LABS: BILIRUBIN,URINE NEGATIVE (NEGATIVE); GLUCOSE, URINE (UA) NEGATIVE (NEGATIVE); KETONES,URINE (UA) NEGATIVE (NEGATIVE); LEUKOCYTE ESTERASE, URINE NEGATIVE (NEGATIVE); NITRITE,URINE NEGATIVE (NEGATIVE); OCCULT BLOOD,URINE NEGATIVE (NEGATIVE); PH,URINE 6.5 PH (5.0-7.5); PROTEIN,URINE NEGATIVE (NEGATIVE); UROBILINOGEN,URINE 0.2 (NORMAL) E.U./dL (NORMAL)
[2018-06-06 13:40] LABS: CLARITY,URINE CLEAR (CLEAR)
[2018-06-06 13:41] LABS: HCG UR QUAL NEGATIVE
[2018-06-06 13:58] LABS: AMPHETAMINE SCREEN,URINE NEGATIVE (NEGATIVE); BENZODIAZEPINES SCREEN, URINE NEGATIVE (NEGATIVE); COCAINE SCREEN URINE POSITIVE (NEGATIVE); METHADONE SCREEN, URINE NEGATIVE (NEGATIVE); METHAMPHETAMINES SCREEN, URINE NEGATIVE (NEGATIVE); OPIATE SCREEN, URINE NEGATIVE (NEGATIVE); OXYCODONE SCREEN, URINE NEGATIVE (NEGATIVE); PROPOXYPHENE SCREEN, URINE NEGATIVE (NEGATIVE); TRICYCLIC ANTIDEPRESSANT,URINE POSITIVE (NEGATIVE)
--- NOTE | 2018-06-06 14:10 | XRAY Report ---
Reason: epigastric pain Procedure Date: 06/06/2018 Accession Number: [id number] / [id number] Procedure: XR - Chest 1 View X-Ray CPT Code: 72444 FULL RESULT: EXAM: CHEST RADIOGRAPHY EXAM DATE: 06/06/2018 01:36 PM. CLINICAL HISTORY: Epigastric pain. COMPARISON: None. TECHNIQUE: 1 view. FINDINGS: Lungs/Pleura: No focal opacities evident. No pleural effusion. No pneumothorax. Mediastinum: Within exam limitations, the cardiomediastinal contour is normal. Other: None. IMPRESSION: No acute findings. RADIA
[2018-06-06] MEDS ORDERED: POTASSIUM CHLOR 20 MEQ/100 ML 20 MEQ/100 ML BAG IV ONE (14:35)
[2018-06-06] MEDS ORDERED: IOVERSOL 320 100 ML VIAL IVP ONE ×2 (14:37→17:02)
[2018-06-06] MEDS ORDERED: LORazepam 2 MG/ML VIAL IVP STA (14:38)
[2018-06-06] MEDS ORDERED: POTASSIUM CHLOR 10 MEQ/100 ML 10 MEQ/100 ML BAG IV STA ×2 (14:42→14:43)
[2018-06-06 14:53] VITALS: BP 124/89
--- NOTE | 2018-06-06 16:23 | CT Report ---
Reason: ruq pain, s/p cholycystectomy 2 weeks ago Procedure Date: 06/06/2018 Accession Number: [id number] / [id number] Procedure: CT - Abdomen/Pelvis W/ CPT Code: FULL RESULT: EXAM: CT ABDOMEN AND PELVIS EXAM DATE: 06/06/2018 03:34 PM. CLINICAL HISTORY: Right upper quadrant pain. Cholecystectomy 2 weeks ago. COMPARISONS: ABDOMEN/PELVIS W/ 06/06/2018 2:53 PM ABDOMEN/PELVIS W/ 10/30/2016 7:54 PM. TECHNIQUE: Routine helical CT imaging was performed through the abdomen and pelvis. IV contrast: 100 cc of Optiray 320. Enteric contrast: No. Reconstructions: Coronal and sagittal. In accordance with CT protocol optimization, one or more of the following dose reduction techniques were utilized for this exam: automated exposure control, adjustment of mA and/or KV based on patient size, or use of iterative reconstructive technique. FINDINGS: Lung Bases: Unremarkable. Liver: Normal. No masses. Gallbladder/Bile Ducts: Cholecystectomy, with minor fat stranding in the operative bed. No dilated ducts. No localized fluid collections. Spleen: Normal. Pancreas: Normal. Adrenal Glands: Normal. Kidneys: Normal. No masses or hydronephrosis. Peritoneal Cavity/Bowel: Gastric bypass noted. No free fluid, free air or adenopathy. No masses or acute inflammatory process. The appendix is well visualized and normal. Pelvic Organs: Normal. The bladder and visualized pelvic organs are within normal limits. Vasculature: No aneurysms or other significant abnormality. Bones: Degenerative disk disease throughout the lumbar spine. Other: Small fat containing umbilical hernia noted. IMPRESSION: Cholecystectomy and gastric bypass noted, with no postop complication noted. No acute abnormalities of the abdomen and pelvis. RADIA
[2018-06-06] MEDS ORDERED: POTASSIUM CHLORIDE 20 MEQ TABLET PO STA (16:31)
[2018-06-06] MEDS ORDERED: LORazepam 0.5 MG TABLET PO STA (16:40)
== END 2018-06-06 17:19 | disposition home or self-care (01) ==
LOC: EDUNIT# → ED 12:53
DX: E87.6 Hypokalemia (principal); F19.20 Other psychoactive substance dependence, uncomplicated; R10.11 Right upper quadrant pain; I44.4 Left anterior fascicular block; Z76.5 Malingerer [conscious simulation]
CPT/HCPCS: 36415; 71045; 74177; 80053; 80306; 81001; 81003; 81025; 83690; 83735; 84484; 85025; 87086; 93005; 99283

== ENCOUNTER 2018-06-06 17:46 | Emergency (ER) | payer MEDICARE, MEDICAID ==
[2018-06-06 17:57] VITALS: BP 143/91
--- NOTE | 2018-06-06 18:00 | ED Physician Documentation ---
History of Present Illness - Stated complaint Stated Complaint: WITHDRAWL - Chief complaint Chief Complaint: General - History obtained from History obtained from: Patient - History of Present Illness Timing: Today (Patient had just been seen by my partner after using cocaine. She was upset that she did not get a prescription for Ativan and returns for reevaluation requesting Ativan.) Review of Systems Constitutional: reports: Reviewed and negative Cardiac: reports: Reviewed and negative Respiratory: reports: Reviewed and negative PD PAST MEDICAL HISTORY - Past Medical History Cardiovascular: None Respiratory: Asthma Neuro: Seizure disorder Endocrine/Autoimmune: None GI: Other : None Psych: Depression, Anxiety Musculoskeletal: Chronic back pain Derm: Herpes zoster - Past Surgical History Past Surgical History: Yes General: Gastric surgery Ortho: Shoulder arthroplasty, 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 - Present Medications Home Medications: Ambulatory Orders Medication Instructions Recorded Confirmed QUEtiapine [SEROquel] 150 mg PO QPM 06/08/16 08/02/17 DULoxetine [Cymbalta] 60 mg PO BID 03/29/17 08/02/17 Levetiracetam [Keppra] 750 mg PO BID #60 tablet 03/30/17 08/02/17 clonazePAM [Clonazepam] 2 mg PO BID #10 tablet 04/18/17 08/02/17 Butalb/Acetaminophen/Caffeine 1 each PO Q6H PRN #20 capsule 08/02/17 [Fioricet 50-300-40 mg Capsule] Dexamethasone [Decadron] 4 mg PO DAILY #5 tablet 08/02/17 Ondansetron Odt [Zofran] 4 mg TL Q6H PRN #10 tablet 08/02/17 Lorazepam [Ativan] 1 mg PO TID PRN #7 tablet 10/19/17 Lorazepam [Ativan] 1 mg PO TID PRN #7 tablet 02/27/18 Ondansetron Odt [Zofran] 4 mg TL Q6H PRN #10 tablet 02/27/18 Quetiapine Fumarate [Seroquel Xr] 150 mg PO QPM #7 tab.er.24h 02/27/18 cloNIDine [Catapres] 0.1 mg PO TID #6 tablet 02/27/18 Lorazepam [Ativan] 1 mg PO TID PRN #7 tablet 05/06/18 cloNIDine [Catapres] 0.1 mg PO TID #6 tablet 05/06/18 Potassium Chloride [Klor-Con] 20 meq PO BID 2 Days #4 packet 06/06/18 - Allergies Allergies/Adverse Reactions: Allergies Allergy/AdvReac Type Severity Reaction Status Date / Time naproxen AdvReac Anaphylaxis Verified 06/06/18 17:57 - Social History Does the pt smoke?: No Smoking Status: Never smoker Does the pt drink ETOH?: No Does the pt have substance abuse?: No - Immunizations Immunizations are current?: Yes - POLST Patient has POLST: No PD ED PE NORMAL - Vitals Vital signs reviewed: Yes - General General: Alert and oriented X 3, No acute distress - HEENT HEENT: PERRL, Pharynx benign - Cardiac Cardiac: RRR, No murmur - Respiratory Respiratory: No respiratory distress, Clear bilaterally - Abdomen Abdomen: Non tender - Neuro Neuro: Alert and oriented X 3, 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 She has laready had several visits this year where she was prescribed Ativan and I do not think it is appropriate to continue this from the emergency department. She was very upset with this and left swearing at me. Departure - Departure Disposition: 01 Home, Self Care Clinical Impression: Drug-seeking behavior, Cocaine abuse Condition: Good Record reviewed to determine appropriate education?: Yes Instructions: ED Withdrawal Narcotic
== END 2018-06-06 18:08 | disposition home or self-care (01) ==
LOC: ED 17:46
DX: F14.10 Cocaine abuse, uncomplicated (principal); Z76.5 Malingerer [conscious simulation]; E87.6 Hypokalemia; F19.20 Other psychoactive substance dependence, uncomplicated; R10.11 Right upper quadrant pain; I44.4 Left anterior fascicular block
CPT/HCPCS: 36415; 71045; 74177; 80053; 81003; 81025; 83690; 83735; 84484; 85025; 93005; 96361; 96365; 96366; 96375; 99282; 99283; 99284; A9270; J2060; Q9967; 80306; 81001; 87086

== ENCOUNTER 2018-10-15 08:00 | Outpatient (CLI) | payer MEDICARE, MEDICAID ==
[2018-10-15 13:04] LABS: BASOPHILS % (AUTO) 0.4 %; EOSINOPHILS % (AUTO) 0.7 %; HGB - HEMOGLOBIN 11.5 g/dL (12.0-16.0); LYMPHOCYTES # (AUTO) 0.9 10^3/uL (1.5-3.5); LYMPHOCYTES % (AUTO) 24.5 %; MEAN CORPUSCULAR HEMOGLOBIN 28.6 pg (27.0-31.0); MEAN CORPUSCULAR HGB CONC 33.2 g/dL (32.0-36.0); MEAN CORPUSCULAR VOLUME 86.3 fL (81.0-99.0); MEAN PLATELET VOLUME 10.2 fL (7.9-10.8); MONOCYTES # (AUTO) 0.3 10^3/uL (0.0-1.0); NEUTROPHILS # (AUTO) 2.4 10^3/uL (1.5-6.6); NEUTROPHILS % (AUTO) 66.4 %; PLT - PLATELET COUNT 239 10^3/uL (130-450); RED BLOOD COUNT 4.03 10^6/uL (4.20-5.40); RED CELL DISTRIBUTION WIDTH 17.3 % (12.0-15.0); WHITE BLOOD COUNT 3.6 x10^3/uL (4.8-10.8)
[2018-10-15 13:40] LABS: ALBUMIN 3.2 g/dL (3.2-5.5); ALKALINE PHOSPHATASE 71 IU/L (42-121); ALT ALANINE AMINOTRANSFERASE 10 IU/L (10-60); AST ASPARTATE AMINOTRANSFERASE 20 IU/L (10-42); BILIRUBIN,TOTAL 0.7 mg/dL (0.2-1.0); BUN - BLOOD UREA NITROGEN 11 mg/dL (6-20); CALCIUM 8.5 mg/dL (8.5-10.3); CARBON DIOXIDE - CO2 25 mmol/L (21-32); CHLORIDE 104 mmol/L (101-111); CREATININE 0.7 mg/dL (0.4-1.0); GFR - MDRD 90 (>89); GLUCOSE 75 mg/dL (70-100); SODIUM 135 mmol/L (135-145); TOTAL PROTEIN 6.9 g/dL (6.7-8.2)
[2018-10-15 13:42] LABS: THYROID STIMULATING HORMONE 1.9 uIU/mL (0.34-5.60)
[2018-10-15 13:45] LABS: FREE T4 (FREE THYROXINE) 0.73 ng/dL (0.58-1.64)
[2018-10-15 13:49] LABS: BILIRUBIN,DIRECT < 0.1 mg/dL (0.1-0.5)
[2018-10-16 13:26] LABS: HEPATITIS B SURFACE ANTIGEN NON-REACTIVE (NON-REACTIVE)
[2018-10-16 14:15] LABS: HIV AG/AB 4TH GEN NON-REACTIVE (NON-REACTIVE)
== END 2018-10-15 23:59 | disposition home or self-care (01) ==
LOC: LAB.N 08:00
PROVIDERS: ATTEND Nurse Practitioner Family
DX: F11.20 Opioid dependence, uncomplicated (principal)
CPT/HCPCS: 36415; 80048; 80076; 81599; 84439; 84443; 85025; 86592; 86705; 86708; 86709; 86803; 87340; G0475; 87389

== ENCOUNTER 2019-04-27 13:36 | Outpatient (CLI) | payer MEDICARE, MEDICAID ==
[2019-04-28 10:46] LABS: HEPATITIS B SURFACE ANTIGEN NON-REACTIVE (NON-REACTIVE)
[2019-04-30 10:22] LABS: HEPATITIS C VIRAL RNA GENOTYPE NOT DETECTED
== END 2019-04-27 23:59 | disposition home or self-care (01) ==
LOC: LAB.N 13:36
PROVIDERS: ATTEND Nurse Practitioner Family
DX: F11.20 Opioid dependence, uncomplicated (principal)
CPT/HCPCS: 36415; 81599; 86592; 86704; 86705; 86708; 86709; 87340; 87522; 87902

== ENCOUNTER 2019-10-03 11:56 | Emergency (ER) | payer MEDICARE, MEDICAID ==
--- NOTE | 2019-10-03 13:17 | XRAY Report ---
Reason: swelling and pain Procedure Date: 10/03/2019 Accession Number: [id number] / [id number] Procedure: XR - Knee 4 View RT CPT Code: Final Report FULL RESULT: EXAM: RIGHT KNEE RADIOGRAPHY EXAM DATE: 10/03/2019 01:04 PM. CLINICAL HISTORY: Swelling and pain. COMPARISON: None. TECHNIQUE: 4 views. FINDINGS: Bones: No acute fracture seen. Prominent osteophytes with bony remodeling noted (versus sequela of previous trauma) noted involving the distal femur and tibial plateau. Joints: Moderate severe osteoarthritic changes seen. There is a small suprapatellar joint effusion. Soft Tissues: Normal. No soft tissue swelling. IMPRESSION: 1. No acute fracture noted. 2. Prominent osteophytes with bony remodeling versus previous sequela of trauma involving distal femur and tibial plateau. 3. Moderate severe osteoarthritic changes with small suprapatellar joint effusion. RADIA
--- NOTE | 2019-10-03 14:24 | ED Physician Documentation ---
PD HPI LOWER EXT INJURY - Stated complaint Stated Complaint: R KNEE PX - Chief complaint Chief Complaint: Ext Problem - History obtained from History obtained from: Patient - History of Present Illness PD HPI LOW EXT INJURY LOCATION: Right, Knee Type of injury: Other (use) Where injury occurred: Home Timing - onset: How many days ago (3) Timing - duration: Days (3) Timing - details: Abrupt onset, Still present Improved by: Rest, Ice, Immobilization Worsened by: Moving, Palpating Associated symptoms: Swelling. No: Weakness, Numbness, Tingling, Discolored Contributing factors: No: Anticoagulated Similar symptoms before: Diagnosis (arthritis) Recently seen: Not recently seen - Additional information Additional information: 49-year-old female previously weighing over 500 pounds has had gastric bypass surgery and is now in the 200 range and she is developed some pain in her right knee 3 days ago and this is progressively worsened. She has some swelling to the knee and she is unable to bear weight secondary to pain. She denies any fever. She denies any specific injury to the knee but she does state that she has a lot of arthritis in her knees and she has been in need of her knee replacement for some time. She is on chronic pain management with Suboxone. Review of Systems Constitutional: denies: Fever Eyes: denies: Decreased vision Ears: denies: Ear pain Nose: denies: Reviewed and negative Throat: denies: Sore throat Respiratory: denies: Cough GI: denies: Vomiting Skin: denies: Rash Musculoskeletal: reports: Joint pain, Joint swelling, Pain with weight bearing. 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 - Present Medications Home Medications: Ambulatory Orders Medication Instructions Recorded Confirmed QUEtiapine [SEROquel] 400 - 800 mg PO QPM PRN 06/08/16 10/03/19 Buprenorphine HCl/Naloxone HCl 1 tab SL TID 10/03/19 10/03/19 [Buprenorphin-Naloxon 8-2 mg Sl] Hydrocodone/Acetaminophen 1 - 2 each PO Q6H PRN #14 tablet 10/03/19 [Hydrocodon-Acetaminophen 5-325] - Allergies Allergies/Adverse Reactions: Allergies Allergy/AdvReac Type Severity Reaction Status Date / Time naproxen AdvReac Anaphylaxis Verified 06/06/18 17:57 - Social History Does the pt smoke?: No Smoking Status: Never smoker Does the pt drink ETOH?: No Does the pt have substance abuse?: No - Immunizations Immunizations are current?: Yes - POLST Patient has POLST: No PD ED PE NORMAL - Vitals Vital signs reviewed: Yes (normal ) - General General: Alert and oriented X 3, No acute distress, Well developed/nourished - HEENT HEENT: Atraumatic, PERRL, EOMI - Respiratory Respiratory: No respiratory distress - Derm Derm: Normal color, Warm and dry, No rash - Extremities Extremities: No deformity, No edema, Other (There is swelling to the left knee and tenderness to the infrapatellar area and not to the suprapatellar area she has limited range of motion secondary to increased pain. The ligaments are stable. The patella is not ballotable. On exam it does appear to have a palpable effusion.) - Psych Psych: Normal mood, Normal affect Results - Vitals Vitals: Vital Signs - 24 hr 10/03/19 10/03/19 10/03/19 12:00 14:02 15:16 Temperature 36.8 C 37.3 C 37.5 C Heart Rate 77 72 60 Respiratory 18 12 12 Rate Blood Pressure 112/69 117/83 H 108/67 O2 Saturation 98 100 100 Oxygen O2 Source Room air - Rads (name of study) right knee Radiology: Prelim report reviewed (Impression: 1. No fracture noted. 2 Prominent osteophytes with bony remodeling versus previous sequela of trauma involving distal femur and tibial plateau. 3. Moderate severe osteoarthritic changes with small suprapatellar joint effusion.), EMP read indepedently, See rad report Procedures - Arthrocentesis Joint: Knee Preparation: Sterile prep and drape Anesthesia: Lidocaine 1% Fluid: Bloody, Other (On 2 separate attempts I was unable to obtain fluid despite obviously being in the joint space. There is no significant joint effusion. The attempt was made both medially and laterally.) Aftercare: Dressing applied, No complications, Patient tolerated well PD MEDICAL DECISION MAKING - ED course Complexity details: reviewed old records, reviewed results, re-evaluated patient, considered differential, d/w patient ED course: 49-year-old female on chronic pain management has severe osteoarthritis of her knee and today she is in marked pain especially with any weightbearing or movement of the knee and my concern was for the possibility of a joint infection. I thought it important to tap the joint to rule this out and when I attempted to do this I did not find fluid in the joint space. The procedure was abandoned and the patient was administered Toradol and dexamethasone. We will provide a short course of pain medication for the patient and she tells me that this has been effective when she had her gallbladder out while she was on the Suboxone. Departure - Departure Disposition: 01 Home, Self Care Clinical Impression: Osteoarthritis of knee Qualifiers: Osteoarthritis type: other secondary Laterality: right Qualified Code(s): M17.5 - Other unilateral secondary osteoarthritis of knee Condition: Stable Instructions: Knee Osteoarthritis, ED Degenerative Joint Disease Follow-Up: [facility] [Provider Group] Prescriptions: Hydrocodone/Acetaminophen [Hydrocodon-Acetaminophen 5-325] 1 - 2 each PO Q6H PRN #14 tablet PRN Reason: pain
[2019-10-03] MEDS: KETOROLAC 60 MG/2 ML VIAL IM STA (14:30)
[2019-10-03] MEDS: BUFFERED LIDOCAINE 10 ML SYRINGE SUBQ STA (14:30)
[2019-10-03] MEDS: TRIAMCINOLONE 40 MG/ML VIAL IM STA (14:30)
[2019-10-03 15:16] VITALS: BP 108/67
[2019-10-03] MEDS: DEXAMETHASONE 10 MG/ML VIAL IM STA (15:35)
== END 2019-10-03 15:35 | disposition home or self-care (01) ==
LOC: ED 11:56
DX: M17.5 Other unilateral secondary osteoarthritis of knee (principal)
CPT/HCPCS: 20610

== ENCOUNTER 2019-12-13 16:02 | Emergency (ER) | payer MEDICARE, MEDICAID ==
--- NOTE | 2019-12-13 16:20 | ED Physician Documentation ---
PD HPI UPPER EXT INJURY - Stated complaint Stated Complaint: GLF-LT ARM/LEG INJURY - Chief complaint Chief Complaint: Ext Problem - History obtained from History obtained from: Patient - History of Present Illness Location: Left, Shoulder, Elbow, Forearm Type of injury: Fall (She was walking around the front of a car and did not see the cement curb in the parking lot to the side of it and tripped and fell onto her left shoulder and arm. She denies other injury) Where injury occurred: Other (Parking lot of a store) Timing - onset: Today Timing - details: Abrupt onset, Still present Worsened by: Moving, Palpating Associated symptoms: No: Weakness, Numbness Contributing factors: Prior ortho surgery (left shoulder replacement). No: Anticoagulated Recently seen: Not recently seen Review of Systems Cardiac: denies: Chest pain / pressure GI: denies: Abdominal Pain Skin: denies: Abrasion (s), Laceration (s) Musculoskeletal: denies: Neck pain Neurologic: denies: Focal weakness, Numbness, Altered mental status, Headache, Head injury, LOC PD PAST MEDICAL HISTORY - Past Medical History Cardiovascular: None Respiratory: Asthma Neuro: Seizure disorder Endocrine/Autoimmune: None GI: Other : None Psych: Depression, Anxiety Musculoskeletal: Chronic back pain Derm: Herpes zoster - Past Surgical History Past Surgical History: Yes General: Gastric surgery Ortho: Shoulder arthroplasty, 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 - Present Medications Home Medications: Ambulatory Orders Medication Instructions Recorded Confirmed QUEtiapine [SEROquel] 400 - 800 mg PO QPM PRN 06/08/16 10/03/19 Buprenorphine HCl/Naloxone HCl 1 tab SL TID 10/03/19 10/03/19 [Buprenorphin-Naloxon 8-2 mg Sl] Hydrocodone/Acetaminophen 1 - 2 each PO Q6H PRN #14 tablet 10/03/19 [Hydrocodon-Acetaminophen 5-325] Meloxicam [Mobic] 7.5 mg PO BID PRN #20 tablet 12/13/19 Oxycodone HCl/Acetaminophen 1 each PO Q8H PRN #14 tablet 12/13/19 [Percocet 7.5-325 mg Tablet] - Allergies Allergies/Adverse Reactions: Allergies Allergy/AdvReac Type Severity Reaction Status Date / Time naproxen AdvReac Anaphylaxis Verified 12/13/19 16:10 - Social History Does the pt smoke?: No Smoking Status: Never smoker Does the pt drink ETOH?: No Does the pt have substance abuse?: No - Immunizations Immunizations are current?: Yes - POLST Patient has POLST: No PD ED PE NORMAL - Vitals Vital signs reviewed: Yes - General General: Alert and oriented X 3, No acute distress (but does guard ROM of the left shoulder), Well developed/nourished - HEENT HEENT: Atraumatic - Neck Neck: Supple, no meningeal sign, No bony TTP - Respiratory Respiratory: Clear bilaterally, Other (no chestwall tenderness) - Abdomen Abdomen: Soft, Non tender - Derm Derm: Normal color, Warm and dry - Extremities Extremities: Other (She is guarding range of motion of the left shoulder. There is no obvious deformity of the shoulder. She is tender along the posterior aspect and some at the AC joint. Healed surgical scars are noted. There is tenderness about the elbow with a mild effusion. Very guarded range of motion.) - Neuro Neuro: Alert and oriented X 3, No motor deficit, Normal speech Results - Vitals Vitals: Vital Signs - 24 hr 12/13/19 16:08 Temperature 36.6 C Heart Rate 87 Respiratory 16 Rate Blood Pressure 153/85 H O2 Saturation 98 Oxygen O2 Source Room air - Rads (name of study) shoulder Radiology: Prelim report reviewed (Status post shoulder replacement without any obvious acute bony abnormality), See rad report humerus left Radiology: Prelim report reviewed (No fractures per radiology), EMP read contemporaneously (I thought there was some irregularity of the radial head and will get a dedicated elbow film), See rad report left elbow Radiology: Prelim report reviewed, EMP read contemporaneously, See rad report Departure - Departure Clinical Impression: Left elbow pain Accidental fall Qualifiers: Encounter type: initial encounter Qualified Code(s): W19.XXXA - Unspecified fall, initial encounter Left shoulder strain Qualifiers: Encounter type: initial encounter Qualified Code(s): S46.912A - Strain of u nspecified muscle, fascia and tendon at shoulder and upper arm level, left arm, initial encounter Condition: Stable Record reviewed to determine appropriate education?: Yes Instructions: ED Sprain Shoulder, ED Contusion Upper Ext Follow-Up: PREETI RADFORD MD [Primary Care Provider] - [facility] [Provider Group] Prescriptions: Meloxicam [Mobic] 7.5 mg PO BID PRN #20 tablet PRN Reason: Pain Oxycodone HCl/Acetaminophen [Percocet 7.5-325 mg Tablet] 1 each PO Q8H PRN #14 tablet PRN Reason: Pain Comments: Use the sling to protect motion of the arm (elbow and shoulder). Gentle range of motion as tolerated so they do not stiffen up. Wear the sling most of the time. Use some anti-inflammatories such as Mobic twice daily for the next week. Take it with food. Add oxycodone if needed for pain. Follow-up with orthopedics if not improved over the next several days to week.
[2019-12-13] MEDS ORDERED: HYDROcod/ACETAM 5/325 MG TABLET PO STA (16:32)
--- NOTE | 2019-12-13 17:06 | XRAY Report ---
PROCEDURE: Humerus LT INDICATIONS: fall to left side; pain wrist and shoulder TECHNIQUE: 2 views of the humerus were acquired. COMPARISON: 02/02/2015 shoulder x-ray series FINDINGS: Bones: Postsurgical changes compatible with left shoulder arthroplasty stable compared to prior exam ination. Orthopedic hardware is intact. No lucencies at the bone-hardware interface. No fractures or dislocations. No suspicious bony lesions. Soft tissues: No suspicious soft tissue calcifications. IMPRESSION: No fracture. No acute osseous lesion. If there is continued clinical concern for pathology, then repe at plain film radiographs (7-10 days) or advanced imaging (CT, MR, bone scan) should be considered fo r further evaluation. Reviewed by: Lizabeth Cruz MD, PhD on 12/13/2019 5:04 PM PDT Approved by: Lizabeth Cruz MD, PhD on 12/13/2019 5:04 PM PDT Station ID: [id number]
--- NOTE | 2019-12-13 17:07 | XRAY Report ---
PROCEDURE: Forearm LT INDICATIONS: fall to left side, onto left arm. pain shoulder TECHNIQUE: 2 views of the forearm were acquired. COMPARISON: None FINDINGS: Bones: No fractures or dislocations. No suspicious bony lesions. Soft tissues: No suspicious soft tissue calcifications or masses. IMPRESSION: No fracture. No osseous lesion. If there is continued clinical concern for pathology, then repeat candy in film radiographs (7-10 days) or advanced imaging (CT, MR, bone scan) should be considered for furt her evaluation. Reviewed by: Lizabeth Cruz MD, PhD on 12/13/2019 5:05 PM PDT Approved by: Lizabeth Cruz MD, PhD on 12/13/2019 5:05 PM PDT Station ID: [id number]
[2019-12-13] MEDS ORDERED: oxyCODONE 5 MG TABLET PO STA (17:52)
[2019-12-13] MEDS ORDERED: diphenhydrAMINE 25 MG CAPSULE PO STA (18:04)
[2019-12-13 18:34] VITALS: BP 126/85
--- NOTE | 2019-12-13 18:39 | XRAY Report ---
PROCEDURE: Elbow 2 View LT INDICATIONS: possible radial head injury on humerus film TECHNIQUE: 3 views of the elbow were acquired. COMPARISON: None FINDINGS: Bones: No dislocations. No suspicious bony lesions. There appears to be a slightly impacted radia l head fracture best seen on the straight AP view Soft tissues: Moderate elbow joint effusion. No suspicious soft tissue calcifications. IMPRESSION: Moderate elbow joint effusion associated with what appears to be a slightly impacted radial head frac ture. Reviewed by: Daniel Garcia MD on 12/13/2019 6:38 PM PDT Approved by: Daniel Garcia MD on 12/13/2019 6:38 PM PDT Station ID: [id number]
--- NOTE | 2019-12-13 19:07 | ED Physician Documentation ---
ED Addendum - Addendum Addendum: 12/13/19 19:07 Took call from pharmacy, they were concerned because patient had just picked up her Suboxone and was prescribed Percocet by Dr. North. I advised them not to fill the Percocet.
--- NOTE | 2019-12-13 19:58 | ED Physician Documentation ---
ED Addendum - Addendum Addendum: 12/13/19 19:57 Patient subsequently called back, told me that it was "retarded" that she had gotten a prescription and then it had been canceled. Yelled at me for a few minutes and then told me she would call her "Suboxone doctor." 12/13/19 19:58 I did advise that she could take [id number] pain medication such as Tylenol or ibuprofen for her pain.
== END 2019-12-13 18:34 | disposition home or self-care (01) ==
LOC: ED 16:02
DX: S46.912A Strain of unspecified muscle, fascia and tendon at shoulder and upper arm level, left arm, initial encounter (principal); M25.522 Pain in left elbow; M25.422 Effusion, left elbow; W01.0XXA Fall on same level from slipping, tripping and stumbling without subsequent striking against object, initial encounter; Y93.01 Activity, walking, marching and hiking; Y92.512 Supermarket, store or market as the place of occurrence of the external cause; Z96.612 Presence of left artificial shoulder joint
CPT/HCPCS: 73060; 73070; 73090; 99284; A9270

== ENCOUNTER 2019-12-21 15:02 | Outpatient (CLI) | payer MEDICARE, MEDICAID ==
--- NOTE | 2019-12-21 17:51 | XRAY Report ---
PROCEDURE: Knee 4 View BILAT INDICATIONS: KNEE PAIN TECHNIQUE: 4 views of the left and right knee(s) were acquired. COMPARISON: None. FINDINGS: Bones: Left knee: Moderate joint space loss and marginal first formation in the medial compartment. M ild lateral compartment spurring. Severe patellofemoral compartment joint space loss and spurring. Right knee: Moderate to severe medial compartment joint space loss, slight lateral subluxation, and s pur formation. There is moderate medial compartment joint space loss and spur formation. There is dys trophic calcification along the inferior pole of the right patella. No fractures or dislocations. No suspicious bony lesions. Soft tissues: No joint effusion. There is dystrophic calcification at the level of the patellofemora l joint space lateral to the patella in the left knee. No visible chondrocalcinosis. IMPRESSION: 1. Moderate to severe bilateral medial and patellofemoral compartment osteoarthritic changes. 2. Dystrophic calcification in the left knee lateral to the patella. Reviewed by: Elisabeth Reddy MD on 12/21/2019 5:49 PM PDT Approved by: Elisabeth Reddy MD on 12/21/2019 5:49 PM PDT Station ID: [id number]
== END 2019-12-21 15:03 | disposition home or self-care (01) ==
LOC: DI.N 15:02
PROVIDERS: ATTEND Orthopaedic Surgery
DX: M17.0 Bilateral primary osteoarthritis of knee (principal); M25.862 Other specified joint disorders, left knee

== ENCOUNTER 2020-02-01 09:12 | Outpatient (CLI) | payer MEDICARE, MEDICAID ==
[2020-02-01 11:40] LABS: BASOPHILS % (AUTO) 0.5 %; EOSINOPHILS # (AUTO) 0.1 10^3/uL (0.0-0.7); EOSINOPHILS % (AUTO) 1.3 %; LYMPHOCYTES # (AUTO) 2.5 10^3/uL (1.5-3.5); LYMPHOCYTES % (AUTO) 66.9 %; MEAN CORPUSCULAR HEMOGLOBIN 32.4 pg (27.0-31.0); MEAN CORPUSCULAR HGB CONC 32.2 g/dL (32.0-36.0); MEAN CORPUSCULAR VOLUME 100.9 fL (81.0-99.0); MEAN PLATELET VOLUME 11.9 fL (7.9-10.8); MONOCYTES # (AUTO) 0.3 10^3/uL (0.0-1.0); MONOCYTES % (AUTO) 7.8 %; NEUTROPHILS # (AUTO) 0.9 10^3/uL (1.5-6.6); NEUTROPHILS % (AUTO) 23.5 %; PLT - PLATELET COUNT 201 10^3/uL (130-450); RED BLOOD COUNT 3.39 10^6/uL (4.20-5.40); RED CELL DISTRIBUTION WIDTH 14.4 % (12.0-15.0); WHITE BLOOD COUNT 3.7 x10^3/uL (4.8-10.8)
[2020-02-01 11:56] LABS: ALBUMIN 3.5 g/dL (3.2-5.5); ALBUMIN/GLOBULIN RATIO 1.1 (1.0-2.2); ALKALINE PHOSPHATASE 99 IU/L (42-121); ALT ALANINE AMINOTRANSFERASE 12 IU/L (10-60); AST ASPARTATE AMINOTRANSFERASE 21 IU/L (10-42); BILIRUBIN,TOTAL 0.5 mg/dL (0.2-1.0); BUN - BLOOD UREA NITROGEN 10 mg/dL (6-20); CALCIUM 8.9 mg/dL (8.5-10.3); CARBON DIOXIDE - CO2 32 mmol/L (21-32); CHLORIDE 103 mmol/L (101-111); CHOL/HDL RATIO 4.4 (<4.4); CHOLESTEROL 146 mg/dL; CREATININE 0.7 mg/dL (0.4-1.0); GLUCOSE 90 mg/dL (70-100); HDL CHOLESTEROL 33 mg/dL; LDL CHOLESTEROL,CALCULATED 102 mg/dL; LDL/HDL RATIO 3.1 (<4.4); SODIUM 142 mmol/L (135-145); TOTAL PROTEIN 6.8 g/dL (6.7-8.2); VLDL CHOLESTEROL 11 mg/dL
== END 2020-02-01 23:59 | disposition home or self-care (01) ==
LOC: LAB.WCP 09:12
PROVIDERS: ATTEND Family Medicine
DX: Z01.818 Encounter for other preprocedural examination (principal); Z79.899 Other long term (current) drug therapy
CPT/HCPCS: 36415; 80053; 80061; 83721; 84443; 85025

== ENCOUNTER 2020-02-04 09:10 | Outpatient (CLI) | payer MEDICARE, MEDICAID ==
[2020-02-04 12:26] LABS: FERRITIN 9.5 ng/mL (11.0-306.8)
[2020-02-04 12:29] LABS: FOLATE 4.11 ng/mL (5.90 - >24.8)
[2020-02-04 12:31] LABS: % IRON SATURATION 40 % (20-50); IRON 157 ug/dL (28-170); TOTAL IRON BINDING CAPACITY 391 ug/dL (250-450); TRANSFERRIN 279 mg/dL (192-382)
== END 2020-02-04 23:59 | disposition home or self-care (01) ==
LOC: LAB.WCP 09:10
PROVIDERS: ATTEND Nurse Practitioner Family
DX: D64.9 Anemia, unspecified (principal); Z86.2 Personal history of diseases of the blood and blood-forming organs and certain disorders involving the immune mechanism
CPT/HCPCS: 36415; 82607; 82728; 82746; 83540; 84466

== ENCOUNTER 2020-09-11 08:00 | Outpatient (CLI) | payer MEDICARE, MEDICAID ==
[2020-09-11 18:20] LABS: BASOPHILS % (AUTO) 0.2 %; EOSINOPHILS % (AUTO) 0.7 %; HCT - HEMATOCRIT 32.9 % (37.0-47.0); HGB - HEMOGLOBIN 11.3 g/dL (12.0-16.0); LYMPHOCYTES % (AUTO) 44.5 %; MEAN CORPUSCULAR HEMOGLOBIN 37.9 pg (27.0-31.0); MEAN CORPUSCULAR HGB CONC 34.3 g/dL (32.0-36.0); MEAN CORPUSCULAR VOLUME 110.4 fL (81.0-99.0); MEAN PLATELET VOLUME 11.9 fL (7.9-10.8); MONOCYTES # (AUTO) 0.3 10^3/uL (0.0-1.0); MONOCYTES % (AUTO) 6.5 %; NEUTROPHILS # (AUTO) 2.1 10^3/uL (1.5-6.6); NEUTROPHILS % (AUTO) 47.6 %; PLT - PLATELET COUNT 272 10^3/uL (130-450); RED BLOOD COUNT 2.98 10^6/uL (4.20-5.40); RED CELL DISTRIBUTION WIDTH 15.5 % (12.0-15.0); WHITE BLOOD COUNT 4.4 x10^3/uL (4.8-10.8)
[2020-09-11 19:24] LABS: ALBUMIN 3.2 g/dL (3.2-5.5); ALBUMIN/GLOBULIN RATIO 0.9 (1.0-2.2); BILIRUBIN,TOTAL 0.6 mg/dL (0.2-1.0); CREATININE 0.7 mg/dL (0.4-1.0); POTASSIUM 3.5 mmol/L (3.5-5.0); TOTAL PROTEIN 6.6 g/dL (6.7-8.2)
[2020-09-11 19:28] LABS: FOLATE 3.01 ng/mL (5.90 - >24.8)
[2020-09-11 19:52] LABS: PLATELET ESTIMATE, MANUAL NORMAL (130-450,000) (NORMAL); PLATELET MORPHOLOGY NORMAL APPEARANCE (NORMAL)
[2020-09-11 19:53] LABS: WBC MORPHOLOGY (MULTIPLE) NORMAL APPEARANCE (NORMAL)
== END 2020-09-11 23:59 | disposition home or self-care (01) ==
LOC: LAB.WCP 08:00
PROVIDERS: ATTEND Family Medicine
DX: M17.10 Unilateral primary osteoarthritis, unspecified knee (principal); Z86.2 Personal history of diseases of the blood and blood-forming organs and certain disorders involving the immune mechanism; D64.9 Anemia, unspecified; F33.1 Major depressive disorder, recurrent, moderate; Z98.84 Bariatric surgery status; M54.9 Dorsalgia, unspecified; G89.29 Other chronic pain
CPT/HCPCS: 36415; 80053; 82607; 82746; 83540; 84466; 85025

== ENCOUNTER 2020-12-12 13:08 | Outpatient (CLI) | payer MEDICARE, MEDICAID ==
[2020-12-12 18:01] LABS: ABSOLUTE RETICS # AUTO 0.048 10^6/uL (0.020-0.110); BASOPHILS % (AUTO) 0.8 %; EOSINOPHILS % (AUTO) 1.1 %; HCT - HEMATOCRIT 38.6 % (37.0-47.0); HGB - HEMOGLOBIN 13.2 g/dL (12.0-16.0); LYMPHOCYTES # (AUTO) 2.4 10^3/uL (1.5-3.5); MEAN CORPUSCULAR HEMOGLOBIN 30.4 pg (27.0-31.0); MEAN CORPUSCULAR HGB CONC 34.2 g/dL (32.0-36.0); MEAN CORPUSCULAR VOLUME 88.9 fL (81.0-99.0); MEAN PLATELET VOLUME 12.7 fL (7.9-10.8); MONOCYTES # (AUTO) 0.3 10^3/uL (0.0-1.0); MONOCYTES % (AUTO) 8.2 %; NEUTROPHILS % (AUTO) 25.6 %; PLT - PLATELET COUNT 175 10^3/uL (130-450); RED BLOOD COUNT 4.34 10^6/uL (4.20-5.40); RED CELL DISTRIBUTION WIDTH 13.1 % (12.0-15.0); WHITE BLOOD COUNT 3.8 x10^3/uL (4.8-10.8)
[2020-12-12 18:28] LABS: THYROID STIMULATING HORMONE 3.99 uIU/mL (0.34-5.60)
[2020-12-12 18:36] LABS: FERRITIN 8.9 ng/mL (11.0-306.8)
[2020-12-12 18:39] LABS: FOLATE 6.1 ng/mL (5.90 - >24.8)
[2020-12-12 18:41] LABS: ALBUMIN 3.5 g/dL (3.2-5.5); BILIRUBIN,TOTAL 0.6 mg/dL (0.2-1.0); CREATININE 0.8 mg/dL (0.4-1.0); POTASSIUM 3.7 mmol/L (3.5-5.0); TOTAL PROTEIN 7.1 g/dL (6.7-8.2)
== END 2020-12-12 23:59 | disposition home or self-care (01) ==
LOC: LAB.WCP 13:08
PROVIDERS: ATTEND Family Medicine
DX: D50.9 Iron deficiency anemia, unspecified (principal); R60.0 Localized edema; E53.8 Deficiency of other specified B group vitamins; J45.909 Unspecified asthma, uncomplicated; E55.9 Vitamin D deficiency, unspecified; M17.10 Unilateral primary osteoarthritis, unspecified knee; M19.90 Unspecified osteoarthritis, unspecified site; G40.909 Epilepsy, unspecified, not intractable, without status epilepticus; Z98.84 Bariatric surgery status
CPT/HCPCS: 36415; 80053; 82607; 82728; 82746; 83540; 83921; 84443; 84466; 85025; 85045

== ENCOUNTER 2021-06-13 18:13 | Emergency (ER) | payer MEDICARE, MEDICAID ==
[2021-06-13 18:26] VITALS: BP 143/84
[2021-06-13 18:48] LABS: BILIRUBIN,URINE NEGATIVE (NEGATIVE); GLUCOSE, URINE (UA) NEGATIVE (NEGATIVE); KETONES,URINE (UA) NEGATIVE (NEGATIVE); LEUKOCYTE ESTERASE, URINE MODERATE (NEGATIVE); NITRITE,URINE NEGATIVE (NEGATIVE); OCCULT BLOOD,URINE LARGE (NEGATIVE); PROTEIN,URINE 100 mg/dL (NEGATIVE); UROBILINOGEN,URINE 1 (NORMAL) E.U./dL (NORMAL)
[2021-06-13 18:52] LABS: CLARITY,URINE CLOUDY (CLEAR); HCG UR QUAL NEGATIVE
[2021-06-13] MEDS ORDERED: PHENAZOPYRIDINE 100 MG TABLET PO STA (18:59)
[2021-06-13] MEDS ORDERED: NITROFURANTOIN MACRO 100 MG CAPSULE PO STA (18:59)
--- NOTE | 2021-06-13 19:00 | ED Physician Documentation ---
PD HPI FEMALE - Stated complaint Stated Complaint: FEMALE - Chief complaint Chief Complaint: Abd Pain - History obtained from History obtained from: Patient (Dysuria frequency and some hematuria starting today. No fevers or flank pain.) Review of Systems Constitutional: denies: Fever, Chills GI: denies: Abdominal Pain : reports: Dysuria, Frequency, Hematuria. 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 - Present Medications Home Medications: Ambulatory Orders Medication Instructions Recorded Confirmed QUEtiapine [SEROquel] 400 - 800 mg PO QPM PRN 06/08/16 10/03/19 Buprenorphine HCl/Naloxone HCl 1 tab SL TID 10/03/19 10/03/19 [Buprenorphin-Naloxon 8-2 mg Sl] Hydrocodone/Acetaminophen 1 - 2 each PO Q6H PRN #14 tablet 10/03/19 [Hydrocodon-Acetaminophen 5-325] Meloxicam [Mobic] 7.5 mg PO BID PRN #20 tablet 12/13/19 Oxycodone HCl/Acetaminophen 1 each PO Q8H PRN #14 tablet 12/13/19 [Percocet 7.5-325 mg Tablet] Nitrofurantoin [Macrobid] 1 cap PO BID #10 cap 06/13/21 Phenazopyridine HCl [Pyridium] 200 mg PO TID PRN #6 tablet 06/13/21 - Allergies Allergies/Adverse Reactions: Allergies Allergy/AdvReac Type Severity Reaction Status Date / Time acetaminophen [From Percocet] AdvReac Itching Verified 06/13/21 18:26 hydrocodone [From Vicodin] AdvReac Itching Verified 06/13/21 18:26 naproxen AdvReac Anaphylaxis Verified 12/13/19 16:10 oxycodone [From Percocet] AdvReac Itching Verified 06/13/21 18:26 - Social History Does the pt smoke?: No Smoking Status: Never smoker Does the pt drink ETOH?: No Does the pt have substance abuse?: No - Immunizations Immunizations are current?: Yes - POLST Patient has POLST: No PD ED PE NORMAL - Vitals Vital signs reviewed: Yes - General General: Alert and oriented X 3, No acute distress - Back Back: No CVA TTP - Neuro Neuro: Alert and oriented X 3, Normal speech Results - Vitals Vitals: Vital Signs - 24 hr 06/13/21 18:22 Temperature 36.3 C L Heart Rate 77 Respiratory 16 Rate Blood Pressure 143/84 H O2 Saturation 98 Oxygen O2 Source Room air - Labs Labs: Laboratory Tests 06/13/21 18:39 Urine Color YELLOW Urine Clarity CLOUDY Urine pH 6.0 Ur Specific Don[place]son >=1.030 H Urine Protein 100 H Urine Glucose (UA) NEGATIVE Urine Ketones NEGATIVE Urine Occult Blood LARGE H Urine Nitrite NEGATIVE Urine Bilirubin NEGATIVE Urine Urobilinogen 1 (NORMAL) Ur Leukocyte Esterase MODERATE H Ur Microscopic Review INDICATED Urine Culture Comments Not Reportable Urine HCG, Qual NEGATIVE Departure - Departure Disposition: 01 Home, Self Care Clinical Impression: Cystitis Condition: Good Record reviewed to determine appropriate education?: Yes Instructions: ED UTI Cystitis Female Prescriptions: Nitrofurantoin [Macrobid] 1 cap PO BID #10 cap Phenazopyridine HCl [Pyridium] 200 mg PO TID PRN #6 tablet PRN Reason: dysuria Comments: Prescription sent electronically to [facility] [place] We will culture your urine, the results should be done in 48-72 hours. If an antibiotic change is necessary we will call you. Return if worse in the meantime, especially if you develop increasing flank pain, fevers, or cannot keep down the medication.
[2021-06-13 19:15] LABS: BACTERIA,URINE Few /HPF (None Seen); SQUAMOUS EPITHELIAL CELL,UR NONE SEEN (<= Few); WBC,URINE >25 /HPF (0-5)
== END 2021-06-13 19:19 | disposition home or self-care (01) ==
LOC: ED 18:13
DX: N30.90 Cystitis, unspecified without hematuria (principal)
CPT/HCPCS: 81001; 81025; 87086; 99282; 99283; A9270; 81003

== ENCOUNTER 2022-02-06 17:58 | Outpatient (CLI) | payer MEDICARE, MEDICAID ==
[2022-02-06 20:49] LABS: BILIRUBIN,URINE NEGATIVE (NEGATIVE); GLUCOSE, URINE (UA) NEGATIVE (NEGATIVE); KETONES,URINE (UA) NEGATIVE (NEGATIVE); LEUKOCYTE ESTERASE, URINE NEGATIVE (NEGATIVE); NITRITE,URINE POSITIVE (NEGATIVE); OCCULT BLOOD,URINE TRACE-INTA (NEGATIVE); PROTEIN,URINE NEGATIVE (NEGATIVE); UROBILINOGEN,URINE 1 (NORMAL) E.U./dL (NORMAL)
[2022-02-06 21:06] LABS: BACTERIA,URINE Rare /HPF (None Seen); CLARITY,URINE HAZY (CLEAR); RBC,URINE 0-5 /HPF (0-5); SQUAMOUS EPITHELIAL CELL,UR MOD Squamous (<= Few); WBC,URINE 0-3 /HPF (0-5)
== END 2022-02-06 17:59 | disposition home or self-care (01) ==
LOC: LAB.N 17:58
PROVIDERS: ATTEND Family Medicine
DX: N39.0 Urinary tract infection, site not specified (principal)
CPT/HCPCS: 81001; 87086

== ENCOUNTER 2022-05-17 10:43 | Outpatient (CLI) | payer MEDICARE, MEDICAID | END 2022-05-17 10:44 | disposition home or self-care (01) | LOC: LAB.N 10:43 | PROVIDERS: ATTEND Psychiatry & Neurology Neurology | DX: R56.9 Unspecified convulsions (principal) | CPT/HCPCS: 80177 ==

== ENCOUNTER 2022-10-03 10:23 | Outpatient (CLI) | payer MEDICARE, MEDICAID | END 2022-10-03 10:24 | disposition home or self-care (01) | LOC: LAB.N 10:23 | PROVIDERS: ATTEND Psychiatry & Neurology Neurology | DX: R56.9 Unspecified convulsions (principal); Z51.81 Encounter for therapeutic drug level monitoring ==

== ENCOUNTER 2022-10-03 10:27 | Outpatient (CLI) | payer MEDICARE, MEDICAID ==
[2022-10-03 18:14] LABS: BASOPHILS % (AUTO) 0.6 %; EOSINOPHILS % (AUTO) 0.4 %; HCT - HEMATOCRIT 39.9 % (37.0-47.0); HGB - HEMOGLOBIN 13.4 g/dL (12.0-16.0); LYMPHOCYTES # (AUTO) 1.9 10^3/uL (1.5-3.5); LYMPHOCYTES % (AUTO) 41.2 %; MEAN CORPUSCULAR HEMOGLOBIN 29.7 pg (27.0-31.0); MEAN CORPUSCULAR HGB CONC 33.6 g/dL (32.0-36.0); MEAN CORPUSCULAR VOLUME 88.5 fL (81.0-99.0); MONOCYTES # (AUTO) 0.3 10^3/uL (0.0-1.0); MONOCYTES % (AUTO) 7.1 %; NEUTROPHILS # (AUTO) 2.4 10^3/uL (1.5-6.6); NEUTROPHILS % (AUTO) 50.5 %; PLT - PLATELET COUNT 194 10^3/uL (130-450); RED BLOOD COUNT 4.51 10^6/uL (4.20-5.40); RED CELL DISTRIBUTION WIDTH 12.8 % (12.0-15.0); WHITE BLOOD COUNT 4.7 x10^3/uL (4.8-10.8)
[2022-10-03 18:26] LABS: % IRON SATURATION 15 % (20-50); ALBUMIN 3.5 g/dL (3.2-5.5); ALBUMIN/GLOBULIN RATIO 0.9 (1.0-2.2); ALKALINE PHOSPHATASE 106 IU/L (42-121); ALT ALANINE AMINOTRANSFERASE 13 IU/L (10-60); AST ASPARTATE AMINOTRANSFERASE 18 IU/L (10-42); BILIRUBIN,TOTAL 0.4 mg/dL (0.2-1.0); BUN - BLOOD UREA NITROGEN 12 mg/dL (6-20); CALCIUM 8.7 mg/dL (8.5-10.3); CARBON DIOXIDE - CO2 27 mmol/L (21-32); CHLORIDE 102 mmol/L (101-111); CHOLESTEROL 160 mg/dL; CREATININE 0.8 mg/dL (0.4-1.0); GFR - MDRD 76 (>89); GLUCOSE 80 mg/dL (70-100); HDL CHOLESTEROL 40 mg/dL; IRON 55 ug/dL (28-170); LDL CHOLESTEROL,CALCULATED 103 mg/dL; LDL/HDL RATIO 2.6 (<4.4); POTASSIUM 3.8 mmol/L (3.5-5.0); SODIUM 137 mmol/L (135-145); TOTAL IRON BINDING CAPACITY 374 ug/dL (250-450); TOTAL PROTEIN 7.3 g/dL (6.7-8.2); TRANSFERRIN 267 mg/dL (192-382); TRIGLYCERIDES 84 mg/dL; VLDL CHOLESTEROL 17 mg/dL
[2022-10-03 18:37] LABS: THYROID STIMULATING HORMONE 5.56 uIU/mL (0.34-5.60)
[2022-10-03 18:43] LABS: FERRITIN 29.7 ng/mL (11.0-306.8)
== END 2022-10-03 10:28 | disposition home or self-care (01) ==
LOC: LAB.N 10:27
PROVIDERS: ATTEND Family Medicine
DX: D50.9 Iron deficiency anemia, unspecified (principal); M17.0 Bilateral primary osteoarthritis of knee; E53.8 Deficiency of other specified B group vitamins; Z79.891 Long term (current) use of opiate analgesic; J45.909 Unspecified asthma, uncomplicated; M19.90 Unspecified osteoarthritis, unspecified site; E55.9 Vitamin D deficiency, unspecified; G40.909 Epilepsy, unspecified, not intractable, without status epilepticus; Z51.81 Encounter for therapeutic drug level monitoring
CPT/HCPCS: 36415; 80053; 80061; 80177; 82607; 82728; 83540; 83721; 84443; 84466; 85025

== ENCOUNTER 2023-04-13 14:31 | Emergency (ER) | payer MEDICARE, MEDICAID ==
--- NOTE | 2023-04-13 15:41 | XRAY Report ---
PROCEDURE: Knee 4 View RT INDICATIONS: Trauma TECHNIQUE: 4 views of the knee(s) were acquired. COMPARISON: 12/21/2019 FINDINGS: Bones: Focal mild irregularity is seen involving the lateral tibial plateau. There is moderate to severe medial femorotibial joint space narrowing, with associated degenerative c hange with subchondral sclerosis and osteophyte formation. The degenerative change is worse on the pr ior examination. On the sunrise view, there is moderate lateral patellofemoral joint space narrowing, with associated remodeling changes, including spurs along the margins of the patella. Soft tissues: There is moderate knee joint effusion. No suspicious soft tissue calcifications or mas ses. IMPRESSION: Moderate joint effusion. Focal irregularity seen involving the lateral tibial plateau. There is mild suspicion for fracture by plain film. If clinically appropriate, please consider a follow-up head CT for further evaluation. Degenerative changes are seen, which are most prominent involving the medial femoral tibial compartme nt. The degenerative changes are progressed compared to 2019. Reviewed by: Ten Ernst MD on 04/13/2023 2:40 PM [place] Approved by: Ten Ernst MD on 04/13/2023 2:40 PM [facility] Station ID: [id number]
--- NOTE | 2023-04-13 16:02 | ED Physician Documentation ---
History of Present Illness - Stated complaint Stated Complaint: RT KNEE INJ - Chief complaint Chief Complaint: Trauma Ext - Additonal information Additional information: 52-year-old female who has a longstanding history of osteoarthritis in the right knee presents the emergency department for worsening right knee pain. She reports at least 5 falls over the last month. She is now developed some bruising around the knee and has increased pain with a palpable effusion. Reports that she is being followed by an orthopedist in [facility]. They have made the recommendation that she will need a knee replacement but given her young age have recommended she try and delay replacement for as long as possible. 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, Other HEENT: Tonsil/Adenoidectomy - Present Medications Home Medications: Ambulatory Orders Medication Instructions Recorded Confirmed QUEtiapine [SEROquel] 400 - 800 mg PO QPM PRN 06/08/16 04/13/23 Buprenorphine HCl/Naloxone HCl 1 tab SL TID 10/03/19 04/13/23 [Buprenorphin-Naloxon 8-2 mg Sl] DULoxetine [Cymbalta] 30 mg PO DAILY 04/13/23 04/13/23 Levetiracetam [Keppra Xr] 500 mg PO DAILY 04/13/23 04/13/23 Levetiracetam [Keppra] 1,000 mg PO HS 04/13/23 04/13/23 lamoTRIgine [Lamictal] 150 mg PO DAILY PM 04/13/23 04/13/23 - Allergies Allergies/Adverse Reactions: Allergies Allergy/AdvReac Type Severity Reaction Status Date / Time acetaminophen [From Percocet] AdvReac Itching Verified 04/13/23 15:03 hydrocodone [From Vicodin] AdvReac Itching Verified 04/13/23 15:03 naproxen AdvReac Anaphylaxis Verified 04/13/23 15:03 oxycodone [From Percocet] AdvReac Itching Verified 04/13/23 15:03 - Social History Does the pt smoke?: No Smoking Status: Never smoker Does the pt drink ETOH?: No Does the pt have substance abuse?: No - Immunizations Immunizations are current?: Yes - POLST Patient has POLST: No PD ED PE EXPANDED - Extremities Extremities: Right knee (Palpable effusion of the anterior knee. Mild surrounding erythema. Tenderness is elicited with palpation of the patella and the proximal tibial region. Normal flexion extension. Can bear weight though painful.) Results - Vitals Vitals: Vital Signs - 24 hr 04/13/23 15:04 Temperature 36.6 C Heart Rate 80 Respiratory 16 Rate Blood Pressure 133/98 H O2 Saturation 99 Oxygen O2 Source Room air - Rads (name of study) right knee Relevant Findings:: Final report received (Moderate joint effusion. Focal irregularity seen involving the lateral tibial plateau. There is mild suspicion for fracture by plain film.) PD Medical Decision Making - ED course Complexity details: reviewed results, re-evaluated patient, considered differ gerry, d/w patient ED course: 52-year-old female who has severe osteoarthritis and has previously been recommended for right knee replacement presents emergency department for evaluation of acute on chronic knee pain. Reports that she has fallen 5 times over the last month because the knee simply gives out. She presents with some superficial ecchymosis and a palpable effusion surrounding the knee. She does have preserved flexion and extension. An x-ray of the knee shows severe osteoarthritis however there is suggestion of a lateral tibial plateau fracture. The patient's body habitus and previous shoulder surgeries limit her ability to use crutches. She was placed in a knee immobilizer and reports that she has a sitting walker that she can use at home for immobilization. Clinically the exam is not consistent with an infection or DVT. She is on Suboxone for chronic pain management and as such I am unable to prescribe anything different to manage her pain. She is advised close follow-up with her orthopedics physicians this week. Recommend nonweightbearing until seen by orthopedist. The usual emergent return precautions are otherwise discussed. Departure - Departure Disposition: 01 Home, Self Care Clinical Impression: Knee effusion, right Right knee pain Qualifiers: Chronicity: unspecified Qualified Code(s): M25.561 - Pain in right knee Osteoarthritis, knee Qualifiers: Osteoarthritis type: unspecified Laterality: right Qualified Code(s): M17.11 - Unilateral primary osteoarthritis, right knee Condition: Stable Record reviewed to determine appropriate education?: Yes Comments: addison Sweet the x-ray shows an effusion around your knee. This is a collection of fluid. It is likely due to the falls. The x-ray shows fairly severe and advanced arthritis of the knee. There is a possibility that there is a lateral tibial plateau fracture. It is very important you follow closely with your orthopedic doctor. Until seen by orthopedist, you must remain nonweightbearing of this knee. I recommend that you wear the knee immobilizer when out of bed. I recommend that you use your rolling walker for ambulation. Pivot transfers are about the only weightbearing that should be tolerated. You will have to have a close conversation with your orthopedist as well as your pain management doctor about longer-term management of the knee pain as well as any planned surgeries in order to wean you off the Subutex, place you on an opioid then wean again to place you back on the Subutex. Return to the ER if you have any new or worsening symptoms.
[2023-04-13 16:42] VITALS: BP 129/93; O2SAT 97
== END 2023-04-13 16:25 | disposition home or self-care (01) ==
LOC: ED 14:31
DX: M25.461 Effusion, right knee (principal); M17.11 Unilateral primary osteoarthritis, right knee; Z79.899 Other long term (current) drug therapy
CPT/HCPCS: 99283

== ENCOUNTER 2023-04-14 15:22 | Outpatient (CLI) | payer MEDICARE, MEDICAID ==
[2023-04-14 18:07] LABS: URIC ACID 5.3 mg/dL (2.3-6.6)
== END 2023-04-14 15:23 | disposition home or self-care (01) ==
LOC: LAB.N 15:22
PROVIDERS: ATTEND Nurse Practitioner
DX: E53.8 Deficiency of other specified B group vitamins (principal); M17.0 Bilateral primary osteoarthritis of knee
CPT/HCPCS: 36415; 82607; 84550

== ENCOUNTER 2024-01-16 13:15 | Outpatient (CLI) | payer MEDICARE, MEDICAID ==
[2024-01-16 13:42] LABS: BASOPHILS % (AUTO) 0.3 %; EOSINOPHILS % (AUTO) 0.9 %; HCT - HEMATOCRIT 42.3 % (37.0-47.0); HGB - HEMOGLOBIN 13.7 g/dL (12.0-16.0); LYMPHOCYTES # (AUTO) 1.7 10^3/uL (1.5-3.5); LYMPHOCYTES % (AUTO) 48.4 %; MEAN CORPUSCULAR HGB CONC 32.4 g/dL (32.0-36.0); MEAN CORPUSCULAR VOLUME 92.6 fL (81.0-99.0); MEAN PLATELET VOLUME 12.1 fL (7.9-10.8); MONOCYTES # (AUTO) 0.3 10^3/uL (0.0-1.0); MONOCYTES % (AUTO) 7.4 %; NEUTROPHILS # (AUTO) 1.5 10^3/uL (1.5-6.6); NEUTROPHILS % (AUTO) 42.7 %; PLT - PLATELET COUNT 215 10^3/uL (130-450); RED BLOOD COUNT 4.57 10^6/uL (4.20-5.40); RED CELL DISTRIBUTION WIDTH 12.5 % (12.0-15.0); WHITE BLOOD COUNT 3.5 x10^3/uL (4.8-10.8)
[2024-01-16 14:01] LABS: % IRON SATURATION 26 % (20-50); ALBUMIN 3.7 g/dL (3.2-5.5); ALKALINE PHOSPHATASE 129 IU/L (42-121); ALT ALANINE AMINOTRANSFERASE 6 IU/L (10-60); AST ASPARTATE AMINOTRANSFERASE 16 IU/L (10-42); BILIRUBIN,TOTAL 0.4 mg/dL (0.2-1.0); BUN - BLOOD UREA NITROGEN 11 mg/dL (6-20); CALCIUM 9.5 mg/dL (8.5-10.3); CARBON DIOXIDE - CO2 33 mmol/L (21-32); CHLORIDE 101 mmol/L (101-111); CHOL/HDL RATIO 3.7 (<4.4); CHOLESTEROL 179 mg/dL; CREATININE 0.9 mg/dL (0.6-1.3); CRP - C-REACTIVE PROTEIN < 0.5 mg/dL (<0.5); GFR - MDRD 66 (>89); GLUCOSE 81 mg/dL (74-104); HDL CHOLESTEROL 48 mg/dL; IRON 78 ug/dL (50-212); LDL CHOLESTEROL,CALCULATED 114 mg/dL; LDL/HDL RATIO 2.4 (<4.4); POTASSIUM 4.1 mmol/L (3.5-4.5); SODIUM 137 mmol/L (135-145); TOTAL IRON BINDING CAPACITY 298 ug/dL (250-450); TOTAL PROTEIN 7.3 g/dL (6.4-8.9); TRANSFERRIN 213 mg/dL (203-362); TRIGLYCERIDES 87 mg/dL; VLDL CHOLESTEROL 17 mg/dL
[2024-01-16 14:14] LABS: THYROID STIMULATING HORMONE 2.57 uIU/mL (0.34-5.60)
[2024-01-16 14:21] LABS: FERRITIN 20.5 ng/mL (11.0-306.8)
[2024-01-17 08:10] LABS: VITAMIN D 25-HYDROXY 9.9 ng/mL (30.0-100.0)
[2024-01-21 13:11] LABS: VITAMIN A SERUM 6.4 ug/dL (20.1-62.0)
== END 2024-01-16 13:16 | disposition home or self-care (01) ==
LOC: LAB 13:15
PROVIDERS: ATTEND Nurse Practitioner
DX: R53.83 Other fatigue (principal); Z13.220 Encounter for screening for lipoid disorders; E55.9 Vitamin D deficiency, unspecified; E53.8 Deficiency of other specified B group vitamins; F41.1 Generalized anxiety disorder; F33.1 Major depressive disorder, recurrent, moderate; Z98.84 Bariatric surgery status
CPT/HCPCS: 36415; 80053; 80061; 82306; 82607; 82728; 83540; 83721; 83970; 84425; 84443; 84466; 84590; 85025; 85651; 86140